=== PATIENT | female | born 1975 | race Caucasian/White ===

== ENCOUNTER 2019-06-23 11:02 | Emergency (ER) | payer OTHER, SELFPAY ==
[2019-06-23] VITALS (7 sets, daily range): BP systolic 139–173; BP diastolic 81–98; PULSE 68–90; RESP 16–20; TEMP 36.8; O2SAT 97–98
--- NOTE | ~2019-06-23 | US_ITS ---
EXAMINATION: US pelvic complete w TV DATE: 06/23/2019 12:31 INDICATION: Abnormal uterine bleeding with clots. Comparison:No prior studies for comparison. TECHNIQUE: Multiple transabdominal and endovaginal sonographic images of the pelvis performed. FINDINGS: The uterus measures 9.6 x 4.7 x 4.4 cm.. There are nabothian cysts. The endometrial complex measures 1.4 cm. The right ovary measures 3.5 x 3.2 x 2.7 cm. There is a 2.3 cm right ovarian cyst. There is a complex septated left adnexal cystic mass measuring 5.4 x 4.9 x 4.7 cm, likely ovarian. There is no free fluid in the pelvis. There are no abnormal masses seen on either side. IMPRESSION: 1. Complex 5.4 cm septated left adnexal cyst, likely ovarian. Although likely a complicated functiona l cyst, other etiologies such as cystadenoma/cystadenocarcinoma are not excluded. Recommend follow-up ultrasound in 4-6 weeks to assess for resolution. 2: 2.3 cm right ovarian cyst. 3: Endometrial thickening measuring 1.4 cm. Reviewed, dictated and finalized at location A. IMPRESSION: 1. Complex 5.4 cm septated left adnexal cyst, likely ovarian. Although likely a complicated functional cyst, other etiologies such as cystadenoma/cystadenocar cinoma are not excluded. Recommend follow-up ultrasound in 4-6 weeks to assess for resolution. 2: 2.3 cm right ovarian cyst. 3: Endometrial thickening measuring 1.4 cm.
[2019-06-23 11:35] LABS: Basophils Percent Auto 0.3 % (0.2-1.2); Eosinophils Absolute Auto 0.2 K/mm3 (0-0.3); Eosinophils Percent Auto 1.8 % (0-4.4); Hematocrit 36.4 % (37.0-47.0); Hemoglobin 11.9 g/dL (12.0-15.0); Immature Granulocyte Absolute 0.03 K/mm3 (0.00-0.031); Immature Granulocyte Percent A 0.3 % (0-0.5); Lymphocytes Absolute Auto 2.83 K/mm3 (0.9-3.2); Lymphocytes Percent Auto 26.1 % (18.3-44.2); Mean Corpuscular HGB Conc 32.7 g/dl (32-36); Mean Corpuscular Hemoglobin 26.3 pg (26-34); Mean Corpuscular Volume 80.5 fl (80-100); Mean Platelet Volume 10.8 fl (7.4-10.4); Monocytes Absolute Auto 0.6 K/mm3 (0.1-0.6); Monocytes Percent Auto 5.8 % (2.6-8.5); Neutrophils Absolute Auto 7.1 K/mm3 (1.3-6.7); Neutrophils Percent Auto 65.7 % (45.5-73.1); Platelet Count Result 300 k/mm3 (150-375); Red Blood Count 4.52 M/mm3 (4.2-5.4); Red Cell Distribution Width 15.4 % (11.5-14.5); White Blood Count 10.8 K/mm3 (4.5-10.0)
--- NOTE | 2019-06-23 11:39 | ED.FEMALEGU ---
HPI - Female Genitourinary General Chief complaint: Vaginal Bleeding Stated complaint: Vag bleeding Time Seen by Provider: 06/23/19 11:08 Source: patient Mode of arrival: ambulatory Limitations: no limitations History of Present Illness HPI Narrative: This is a 44 year old female that presents to the ER for AUB. Reports she started a period on the 13 of June. Reports since she has continued to bleed. Reports the last 2 days the bleeding has been heavy and she is soaking through a pad an hour. Also reports feeling generally weak. Denies fever, chest pain, shortness of breath, or lightheadedness. Related Data Home Medications Medication Instructions Recorded Confirmed ferrous sulfate 06/23/19 fluticasone propionate INTRANASAL 06/23/19 hydrochlorothiazide 06/23/19 levetiracetam PO 06/23/19 losartan 06/23/19 06/23/19 Allergies Allergy/AdvReac Type Severity Reaction Status Date / Time amoxicillin Allergy Mild Itching Verified 06/23/19 11:32 Review of Systems Review of Systems: Narrative: CONSTITUTIONAL: Denies fever CARDIOVASCULAR: Denies chest pain RESPIRATORY: Denies dyspnea. MUSCULOSKELETAL: Reports back pain All systems reviewed & are unremarkable except as noted in HPI and below PMFSH Past Medical History Medical History (Updated 06/23/19 @ 15:29 by Yessenia Del Rio PA-C) History of hypertension History of seizures Surgical History Surgical History (Updated 06/23/19 @ 11:42 by Yessenia Del Rio PA-C) History of cholecystectomy Family History Family History (Updated 05/25/17 @ 14:21 by DOCTOR UNKNOWN) Father Family history of gout Hypertension Family history of diabetes mellitus in first degree relative Sibling Hypertension Patient's sister is in good health Social History Social History Smoking status: Never smoker Alcohol intake: current Gender identity (if verbalized by the patient): Female Exam Narrative: Exam Narrative: GENERAL: Well-appearing, well-nourished, and in no acute distress. HEAD: Normocephalic, atraumatic. EYES: EOMI. CHEST: Clear to auscultation. No respiratory distress. No wheezes rales or rhonchi HEART: Regular rate and rhythm. No murmur heard. Normal peripheral pulses. ABDOMEN: Soft, nontender, nondistended, normal active bowel sounds. EXTREMITIES: Normal range of motion. No edema. SKIN: Warm, dry, no rash. NEURO: No focal deficits. Alert and oriented x3. PSYCH: Normal mood and affect PELVIC: Normal appearing cervix. Mild amount of dark red blood slowly oozing from the cervix Course Consultations Consultation #1: Spoke with Dr. Bullock about patient and work-up who would like patient started on Provera 10 mg daily and will follow-up in clinic Date: 06/23/19 Time: 15:27 Vital Signs Vital signs: Vital Signs Temperature 98.2 F 06/23/19 11:25 Pulse Rate 78 06/23/19 11:25 Respiratory Rate 18 06/23/19 11:25 Blood Pressure 151/91 H 06/23/19 11:25 Pulse Oximetry 97 06/23/19 11:25 Temperature 98.2 F 06/23/19 11:25 Pulse Rate 88 06/23/19 15:16 Respiratory Rate 16 06/23/19 15:16 Blood Pressure 147/92 H 06/23/19 15:16 Pulse Oximetry 97 06/23/19 15:16 MDM - Female Genitourinary MDM Narrative Medical decision making narrative: Patient presents to the emergency department for abnormal uterine bleeding. Patient's vitals are stable. She is not orthostatic. CBC with hemoglobin of 11.9. Metabolic panel without acute changes. UA with red blood cells, no evidence of infection. Pelvic ultrasound shows a complex left adnexal cyst that will need further follow-up. Also shows a smaller right ovarian cyst. Also shows endometrial thickening. Spoke with Dr. Bullock about patient and work-up who would like patient started on Provera 10 mg daily and will follow-up in clinic. Patient was given warnings to return to the ER Lab Data Attestation: I reviewed the patient's lab results. Result diagrams: 06/23/19 11:28
[2019-06-23 11:46] LABS: Alanine Aminotransferase 15 U/L (4-35); Albumin Level 4.2 g/dL (3.5-5.1); Alkaline Phosphatase 95 U/L (38-126); Aspartate Amino Transferase 21 U/L (14-36); Bilirubin,Total 0.3 mg/dL (0.2-1.3); Blood Urea Nitrogen 11 mg/dL (7-17); Calcium 8.8 mg/dL (8.4-10.2); Carbon Dioxide 28 mmol/L (22-30); Chloride 101 mmol/L (98-107); Estimated CRCL calculation 139 ml/min; Estimated Glomerular Filt Rate > 60; Glucose 86 mg/dL (65-105); Potassium 3.4 mmol/L (3.4-5.0); Sodium 135 mmol/L (137-145)
[2019-06-23 13:53] LABS: Add Urine Microscopic? YES; Appearance Urine Clear (Clear); Bilirubin Urine Negative (Negative); Blood Urine 3+ (Negative); Color Urine Straw (Yellow); Glucose Urine UA Negative (Negative); Ketones Urine Negative (Negative); Leukocyte Esterase Ur Negative LEU/UL (Negative); Mucus Urine Rare /lpf; Nitrate Urine Negative (Negative); Protein Urine Negative (Negative); RBC Urine >75 /hpf (0-2); Squamous Epithelial Cell Urine Occasional /hpf (Few); Urobilinogen Urine Negative mg/dL (<2.0); WBC Urine 0-3 /hpf
== END 2019-06-23 15:58 | disposition home or self-care (01) ==
PROVIDERS: Physician Assistant; Emergency Provider Emergency Medicine; PCP Physician Assistant
DX: N94.89 Other specified conditions associated with female genital organs and menstrual cycle (principal); N93.8 Other specified abnormal uterine and vaginal bleeding; I10 Essential (primary) hypertension; N83.201 Unspecified ovarian cyst, right side
CPT/HCPCS: 36415; 76830; 76856; 80053; 81001; 81025; 85025; 86850; 86900; 86901; 99284

== ENCOUNTER 2019-09-24 17:17 | Emergency (ER) | payer OTHER, SELFPAY ==
[2019-09-24] VITALS (7 sets, daily range): BP systolic 176–194; BP diastolic 106–110; PULSE 75–85; RESP 16–22; TEMP 36.2–37.3; O2SAT 96–97
--- NOTE | ~2019-09-24 | XR_ITS ---
EXAMINATION: XR chest 1V portable EXAM DATE: 09/24/2019 19:37 INDICATION: Productive cough. Sore throat. TECHNIQUE: Frontal and lateral projections of the chest obtained and reviewed. Comparison is made to prior examination from 12/25/2015. FINDINGS: There is small amount of ill-defined bibasilar airspace disease, could be atelectasis or i nfection. Cardiomediastinal silhouette is normal. There is no pneumothorax suspected. There are no pl eural effusions. IMPRESSION: 1. Small amount of bibasilar atelectasis or infection. Clinical correlation. Reviewed, dictated and finalized at location A.
--- NOTE | 2019-09-24 18:41 | ED.GENADULT ---
HPI - General Adult General Chief complaint: Headache <Emily Mitchell PA-C - Last Filed: 09/24/19 22:15> Stated complaint: headache/neck pain <Emily Mitchell PA-C - Last Filed: 09/24/19 22:15> Time Seen by Provider: 09/24/19 17:58 <ÁNGEL Sandoval Last Filed: 09/24/19 22:15> Source: patient <ÁNGEL Sandoval Last Filed: 09/24/19 22:15> Mode of arrival: ambulatory <ÁNGEL Sandoval Last Filed: 09/24/19 22:15> Limitations: no limitations <ÁNGEL Sandoval Last Filed: 09/24/19 22:15> History of Present Illness HPI narrative: 44-year-old female who is here for evaluation of her headache, she tells me that the headache comes on after she coughs. She has been seen and treated for sinusitis at another facility but states that she is not getting any better. She is on an antibiotic and a cough suppressant. She states that her cough is nonproductive of yellow-green sputum. She denies any chest pain, no focal weakness. Her blood pressure is elevated at this time and she does not know what her average blood pressure is at home and she reports taking only 1 medication for blood pressure. <Emily Mitchell PA-C - Last Filed: 09/24/19 22:15> Onset (ago): day(s) <ÁNGEL Sandoval Last Filed: 09/24/19 22:15> Location: head <ÁNGEL Sandoval Last Filed: 09/24/19 22:15> Pain Consistency: intermittent (occurring after coughing) <ÁNGEL Sandoval Last Filed: 09/24/19 22:15> Relieving factors: none <ÁNGEL Sandoval Last Filed: 09/24/19 22:15> Associated symptoms: cough <ÁNGEL Sandoval Last Filed: 09/24/19 22:15> Related Data Home medications: Home Medications Medication Instructions Recorded Confirmed ferrous sulfate 06/23/19 fluticasone propionate INTRANASAL 06/23/19 hydrochlorothiazide 06/23/19 levetiracetam PO 06/23/19 losartan 06/23/19 06/23/19 doxycycline hyclate 09/24/19 <Emily Mitchell PA-C - Last Filed: 09/24/19 22:15> Allergies/adverse reactions: Allergies Allergy/AdvReac Type Severity Reaction Status Date / Time amoxicillin Allergy Mild Itching Verified 09/24/19 18:47 <Emily Mitchell PA-C - Last Filed: 09/24/19 22:15> Review of Systems Review of Systems: All systems reviewed & are unremarkable except as noted in HPI and below <Emily Mitchell PA-C - Last Filed: 09/24/19 22:15> [facility] Past Medical History Medical History: Medical History History of hypertension History of seizures <Emily Mitchell PA-C - Last Filed: 09/24/19 22:15> Surgical History Surgical History: Surgical History History of cholecystectomy <Emily Mitchell PA-C - Last Filed: 09/24/19 22:15> Family History Family History: Family History Father Family history of gout Hypertension Family history of diabetes mellitus in first degree relative Sibling Hypertension Patient's sister is in good health <Emily Mitchell PA-C - Last Filed: 09/24/19 22:15> Social History Social History: Social History Smoking status: Never smoker Alcohol intake: current Gender identity (if verbalized by the patient): Female <Emily Mitchell PA-C - Last Filed: 09/24/19 22:15> Exam Const: General: no acute distress and alert <ÁNGEL Sandoval Last Filed: 09/24/19 22:15> Orientation/consciousness: patient oriented x3 <ÁNGEL Sandoval Last Filed: 09/24/19 22:15> HENMT: Ears: TM abnormal with fluid behind the TM bilateral <ÁNGEL Sandoval Last Filed: 09/24/19 22:15> General nose exam: Abnormal mucous membranes and turbinates present (swelling) other <ÁNGEL Sandoval Last Filed: 09/24/19 22:15> Face and s
[2019-09-24 19:02] LABS: Basophils Percent Auto 0.3 % (0.2-1.2); Eosinophils Absolute Auto 0.4 K/mm3 (0-0.3); Hematocrit 42.3 % (37.0-47.0); Hemoglobin 13.7 g/dL (12.0-15.0); Immature Granulocyte Absolute 0.04 K/mm3 (0.00-0.031); Immature Granulocyte Percent A 0.3 % (0-0.5); Lymphocytes Absolute Auto 2.36 K/mm3 (0.9-3.2); Lymphocytes Percent Auto 18.9 % (18.3-44.2); Mean Corpuscular HGB Conc 32.4 g/dl (32-36); Mean Corpuscular Hemoglobin 26.1 pg (26-34); Mean Corpuscular Volume 80.7 fl (80-100); Mean Platelet Volume 11.8 fl (7.4-10.4); Monocytes Absolute Auto 0.7 K/mm3 (0.1-0.6); Monocytes Percent Auto 5.6 % (2.6-8.5); Neutrophils Percent Auto 71.9 % (45.5-73.1); Platelet Count Result 318 k/mm3 (150-375); Red Blood Count 5.24 M/mm3 (4.2-5.4); Red Cell Distribution Width 15.3 % (11.5-14.5); White Blood Count 12.5 K/mm3 (4.5-10.0)
[2019-09-24 19:20] LABS: Alanine Aminotransferase 13 U/L (4-35); Albumin Level 4.1 g/dL (3.5-5.1); Alkaline Phosphatase 92 U/L (38-126); Anion Gap 9 mmol/L (8-16); Aspartate Amino Transferase 17 U/L (14-36); Bilirubin,Total 0.2 mg/dL (0.2-1.3); Blood Urea Nitrogen 17 mg/dL (7-17); Calcium 9.2 mg/dL (8.4-10.2); Carbon Dioxide 25 mmol/L (22-30); Chloride 104 mmol/L (98-107); Estimated Glomerular Filt Rate > 60; Glucose 104 mg/dL (65-105); Potassium 3.9 mmol/L (3.4-5.0); Sodium 138 mmol/L (137-145)
[2019-09-24] MEDS: IBUPROFEN 600 MG TABLET PO (20:19)
[2019-09-24] MEDS: AZITHROMYCIN 250 MG TABLET 500 MG PO (20:19)
== END 2019-09-24 22:00 | disposition home or self-care (01) ==
PROVIDERS: Physician Assistant; Emergency Provider Emergency Medicine; PCP Nurse Practitioner Family
DX: G44.209 Tension-type headache, unspecified, not intractable (principal); J18.9 Pneumonia, unspecified organism; I10 Essential (primary) hypertension
CPT/HCPCS: 36415; 71045; 80053; 81025; 85025; 94640; 99283; A9270

== ENCOUNTER 2024-06-10 23:51 | Observation (INO) | payer OTHER, SELFPAY ==
--- NOTE | ~2024-06-10 | XR_ITS ---
CHEST RADIOGRAPH CLINICAL HISTORY: chest pain LEFT SIDE . COMPARISON: 09/24/2019 TECHNIQUE: Single portable view of the chest. FINDINGS The aortic knob is enlarged more than one would expect for a patient of this age. The remainder of the cardiomediastinal silhouette is also enlarged, an interval change from prior per formed in 2019. Increased interstitial markings are identified bilaterally, findings suggesting mild pulmonary vascul ar congestion. The lungs are otherwise clear. IMPRESSION: Cardiomegaly (an interval change from prior) with mild pulmonary vascular congestion, without focal i nfiltrate. Reviewed, dictated and finalized at location A. IMPRESSION: Cardiomegaly (an interval change from prior) with mild pulmonary vascular conge stion, without focal infiltrate.
--- NOTE | ~2024-06-10 | CT_ITS ---
EXAMINATION: CT brain wo con DATE: 06/11/2024 11:19 INDICATION: Headache TECHNIQUE: Computed tomography (CT) of the head was performed without intravenous contrast. Sagittal and coronal reconstructions were performed. The mA was adjusted according to patient size. Iterative reconstruction technique was employed. The dose-length product was 605.33 mGy-cm. COMPARISON: Brain MR dated 06/18/2017 FINDINGS: No acute intracranial hemorrhage, acute infarction or abnormal extra axial fluid collection. There is mild to moderate scattered white matter hypoattenuation which is disproportionate for age. Ventricl es are normal and symmetric. No mass/mass effect. End seen is a Chiari I malformation with the cerebe llar tonsils extending well below the level of the foramen magnum. The orbits, paranasal sinuses and mastoid air cells are normal. IMPRESSION: 1. Mild to moderate nonspecific white matter hypodensity which is disproportionate for age. This coul d be related to premature chronic small vessel ischemic disease given the reported history of hyperte nsion. Differential would also include demyelinating disease such as multiple sclerosis or acute diss eminated encephalomyelitis (ADEM), CADASIL (especially if age 20-40 with prominent anterior temporal lobe or external capsule involvement), drug abuse (especially with cerebellar involvement), vasculiti s, or reactive astrocytosis (gliosis) secondary to nonspecific etiology. 2. Chiari I malformation. Reviewed, dictated and finalized at location A. IMPRESSION: 1. Mild to moderate nonspecific white matter hypodensity which is disproportion ate for age. This could be related to premature chronic small vessel ischemic d isease given the reported history of hypertension. Differential would also incl ude demyelinating disease such as multiple sclerosis or acute disseminated ence phalomyelitis (ADEM), CADASIL (especially if age 20-40 with prominent anterior temporal lobe or external capsule involvement), drug abuse (especially with cer ebellar involvement), vasculitis, or reactive astrocytosis (gliosis) secondary to nonspecific etiology. 2. Chiari I malformation.
--- NOTE | ~2024-06-10 | CT_ITS ---
EXAMINATION: CTA chest abdomen pelvis DATE: 06/11/2024 02:03 INDICATION: Chest pain radiating to the left back TECHNIQUE: Computed tomographic angiography (CTA) of the chest, abdomen and pelvis was performed with 100 mL Omnipaque-350 intravenous contrast. Additional 3D reconstructions utilizing rotating maximum intensity projection (MIP) were performed. Automated exposure control and iterative reconstruction te chnique were employed. The dose-length product was 1853.37 mGy-cm. COMPARISON: CT abdomen pelvis dated 07/11/2012 FINDINGS: Chest: There is mosaic attenuation throughout both lungs. Discoid atelectasis in the lingula and left lower lobe. No pleural effusion. Cardiomegaly. No pericardial effusion. Thoracic aorta is normal in caliber with no dissection. Enlargement of the central pulmonary arteries consistent with pulmonary arterial hypertension. No pulmonary embolism. No pathologically enlarged thoracic lymphadenopathy. Likely dev elopmental anterior posterior fusion at T2-T3 and at T4-T5. Hypoplastic bilateral first ribs. Abdomen and pelvis: Cholecystectomy clips the gallbladder fossa. Liver, spleen, pancreas, bilateral adrenal glands and ki dneys are normal. Bowels including the appendix are normal. Bladder, uterus and bilateral adnexa are unremarkable. No free intraperitoneal gas or fluid. No pathologically enlarged abdominal or pelvic ly mphadenopathy. There is calcified atherosclerosis without hemodynamically significant stenosis of the normal caliber abdominal aorta and many of the other arteries. Mild lumbar spondylosis. IMPRESSION: 1. Mosaic attenuation in the lungs most likely related to subsegmental air trapping related to small airway disease and/or pulmonary hypertension with enlargement of the central pulmonary arteries. 2. Cardiomegaly. 3. No acute intra-abdominal/pelvic process. Reviewed, dictated and finalized at location A. IMPRESSION: 1. Mosaic attenuation in the lungs most likely related to subsegmental air trap ping related to small airway disease and/or pulmonary hypertension with enlarge ment of the central pulmonary arteries. 2. Cardiomegaly. 3. No acute intra-abdominal/pelvic process.
[2024-06-10 23:52] VITALS: BP 230/117; PULSE 85; RESP 22; TEMP 35.6; O2SAT 98
--- OUTSIDE RECORDS SUMMARY | 2024-06-10 23:53 | XMS_ITS | Referral Summary ---
Author Organization [facility] Address [address] [place] [address] Care Team Providers Care Crop Nutrition Scientist Name Role Phone Flavia Gibson NP Primary Care Provider Encounters Date Type Department Care Team Description 03/21/2024 10:00 AM GREASE MAN Office Visit [facility] Orthopedic [facility] Sports Medicine [address] [place] [id number] Kan Vasquez PA Primary osteoarthritis of both knees (Primary Dx) from Last 3 Months Allergies Active Allergy Reactions Criticality Noted Date Comments Amlodipine Swelling High 01/16/2021 Amoxicillin Unknown 07/09/2020 Amoxicillin-Pot Clavulanate Rash Medium 05/11/19 16 Medications losartan (COZAAR) 50 mg tablet losartan potassium 50 mg tabs Active tiZANidine (ZANAFLEX) 4 mg tablet tizanidine 4 mg tablet 8 Active albuterol HFA (PROVENTIL HFA,VENTOLIN HFA,PROAIR HFA) 90 mcg/actuation inhaler Take by mouth 1 Active fluticasone propionate (FLONASE) 50 mcg/actuation nasal spray Apply topically 1 Active hydroCHLOROthia zide (HYDRODIURIL) 25 mg tablet Take by mouth 0 Active phentermine 37.5 mg capsule 0 1 Active terbinafine (LamISIL) 1 % cream terbinafine HCl 1 % topical cream Active ibuprofen (ADVIL,MOTRIN) 800 mg tablet TAKE 1 TABLET(800 MG) BY MOUTH TWICE DAILY WITH FOOD 60 tablet 2 2 Active cefdinir (OMNICEF) 300 mg capsule TAKE 1 CAPSULE BY MOUTH EVERY 12 HOURS FOR 7 DAYS 2 Active ergocalciferol (VITAMIN D) 50,000 unit capsule Take 1 capsule (50,000 Units total) by mouth once a week 1 Active levETIRAcetam (KEPPRA) 500 mg tablet TAKE 2 TABLETS BY MOUTH TWICE DAILY FOR 15 DAYS 2 Active losartan-hydroc hlorothiazide (HYZAAR) 100-25 mg per tablet Take 1 tablet by mouth daily 2 Active naproxen (NAPROSYN) 500 mg tablet Take 500 mg by mouth 1 Active pyridoxine (VITAMIN B-6) 100 mg tablet Take 1 tablet (100 mg total) by mouth daily 3 Active ofloxacin (FLOXIN) 0.3 % otic solution INSTILL 10 DROPS TO AFFECTED EAR EVERY DAY FOR 7 DAYS 3 Active metoprolol XL (TOPROL-XL) 50 mg extended release tablet Take 1 tablet (50 mg total) by mouth daily 4 Active methylPREDNISol one (MEDROL DOSEPACK) 4 mg Dosepack FOLLOW PACKAGE DIRECTIONS 3 Active metFORMIN (GLUCOPHAGE) 500 mg tablet Take 1 tablet (500 mg total) by mouth 2 (two) times a day 3 Active levoFLOXacin (LEVAQUIN) 750 mg tablet Take 1 tablet (750 mg total) by mouth daily 3 Active cyclobenzaprine (FLEXERIL) 10 mg tablet TAKE 1 TABLET BY MOUTH EVERY 8 TO 10 HOURS - DO NOT DRIVE OR OPERATE MACHINERY WHILE TAKING THIS MEDICATION 3 Active Active Problems No known active problems Social History Tobacco Use Types Packs/Day Years Used Date Smoking Tobacco: Never Smokeless Tobacco: Never Alcohol Use Standard Drinks/Week Comments Yes 0 (1 standard drink = 0.6 oz pur e alcohol) AUDIT-C Answer Date Recorded Q1: How often do you have a drink containing alcohol? Never 03/21/2024 Q2: How many drinks containi ng alcohol do you have on a typical day when you are drinking? Patient does not drink 5 Q3: How often do you have si x or more drinks on one occasion? Never 03/21/2024 Comments Unknown Sex and Gender Information Value Date Recorded Sex Assigned at Not on file Legal Sex Female 1:34 PM CDT Gender Identity Not on file Sexual Orientation Not on file Last Filed Vital Signs Vital Sign Reading Time Taken Comments Blood Pressure 140/76 03/21/2024 10:16 AM GREASE MAN Pulse 76 03/21/2024 10:16 AM GREASE MAN Temperature 36.4 C (97.6 F) 01/10/2020 9:39 AM GREASE MAN Respiratory Rate - - Oxygen Saturation - - Inhaled Oxygen Concentration - - Weight 110.7 kg (244 lb) 03/21/2024 10:16 AM GREASE MAN Height 144.8 cm (4' 9 ) 03/21/2024 10:16 AM GREASE MAN Body Mass Index 52.8 03/21/2024 10:16 AM GREASE MAN Plan of Treatment Not on file Procedures Procedure Name Priority Date/Time Associated Diagnosis Comments MI ARTHROCENTESIS ASPIR&/INJ MAJOR JT/BURSA W/O US Routine 03/21/2024 10:00 AM GREASE MAN Primary osteoarthritis of both knees from Last 3 Months Results * MI ARTHROCENTESIS ASPIR&/INJ MAJOR JT/BURSA W/O US (03/21/2024 10:00 AM GREASE MAN) Narrative Kan Vasquez PA - 03/21/2024 10:00 AM GREASE MAN Kan Vasquez PA 03/21/2024 10:33 AM Large Joint (Hip, Knee, Shoulder) Injection: L knee Performed by: Kan Vasquez PA Authorized by: Kan Vasquez PA Large Joint Injection/Aspiration: Consent Given by: Patient Timeout: prior to procedure the correct patient, procedure, and site was verified Verbal consent obtained: Yes Supporting Documentation: Indications: Pain Procedure Details: Location: Knee Site: L knee Prep: patient was prepped using a clean technique Needle Size: 22 G Approach: Anteromedial Ultrasound guided: No Fluroscopic guidance: No Medications: 80 mg methylPREDNISolone acetate 80 mg/mL; 3 mL lidocaine 20 mg/mL (2 %) Patient tolerance: Patient tolerated the procedure well with no immediate complications us Kan BLANCHARD IN CLINIC/BEDSIDE ORDERABLE S Final Result from Last 3 Months Insurance [facility] Member Subscriber Plan / Payer (Ef fective 2015-Present) Name:Savannah Mills Relation to Subscriber:Self Name:Savannah Mills Payer ID:[id number] (NAIC) Group ID:Not on file Type:MEDICAID RISK OTHER Address: [address] [place], [place] [id number] [place] [address] [facility] Care Teams Crop Nutrition Scientist Relationship Specialty Start Date End Date Paige, Flavia Cordero NP [address] [place] [address] [place] [id number] PCP - General Nurse Practitioner 09/16/19
--- OUTSIDE RECORDS SUMMARY | 2024-06-10 23:54 | XMS_ITS | Data Portability ---
Author [facility] [address] [place] [address] Care Team Providers Care Tombstone Setter Name Role Phone FLAVIA MYERS Primary Care Provider Assessment No assessment recorded. Plan of Treatment Reminders Order Date Submit Date Provider Last Modified By Organization Details Last Modified Time Details Appointments ANY 15 2024 01:45P M LISA DeviN, ADMITTING CLERK-C Not available Not available Not available Lab HbA1c (hemoglo bin A1c), blood 2023 024 [facility], [address] [place] [address], [place], [address], 11/04/2023 07:13:46 CMP, serum or plasma 2023 024 [facility], [address] [place] [address], [place], [address], 11/04/2023 03:09:08 CBC w/ auto diff 2023 024 [facility], [address] [place] [address] 2, [place], [address], 11/04/2023 03:09:09 lipid panel, serum 2023 024 [facility], [address] [place] [address] 2, [place], [address], 11/04/2023 03:09:07 vitamin D, 25-hydro xy, total, serum 2023 024 [facility], [address] [place] [address], [facility], [place], [address], 11/04/2023 07:13:47 noninvas marcelo colorect al cancer DNA + occult blood screenin g, QL, stool 2023 024 [place] [facility] (Cologuard Orders Only), [address], [address], [place], [address], 08/31/2023 15:02:15 TSH, ultra-se nsitive, serum 2023 024 [place] [facility], [address] [facility], [facility], [place], [address], 11/04/2023 07:13:45 rapid SARS CoV 2 Ag, QL IA, respirat ory specimen 2022 023 In-Office Order, Internal Use Only DO Not Attach Compendium DO Not Attach Compendium, Do Not Delete/merge, [id number] 01/28/2023 22:07:19 rapid flu (A+B) 2022 023 In-Office Order, Internal Use Only DO Not Attach Compendium DO Not Attach Compendium, Do Not Delete/merge, [id number] 01/28/2023 22:07:[address] referral 2023 024 [place] [facility], [address] [facility], [facility] [address], [place], [address], 05/09/2024 07:47:30 physical therapis t referral [address] [facility], [address] [place], [address], 04/28/2023 16:40:00 Procedures None recorded . Surgeries None recorded . Imaging MAMMO, screenin g, digital, bilatera l 2023 024 [facility] ([facility]), [address] [place], [address], 12/23/2023 11:19:23 XR, spine, scoliosi s series 2023 [facility] [address] [place], [address], 05/07/2023 14:07:44 Medication Orders hydrochl orothiaz richard 25 mg tablet 2023 024 [facility]26031, [address], [place], [place], [id number], 01/26/2024 15:25:00 ergocalc iferol (vitamin D2) 50 mcg (2,000 unit) capsule 2023 [facility] #37582, [address], [place], [place], [id number], 01/26/2024 15:24:59 metformi n 500 mg tablet 2023 024 [facility] #42950, [address], [place], [place], [id number], 01/26/2024 15:25:02 ibuprofe n 800 mg tablet [email or web address] [place] [address] [facility] #83190, [address], [place], [place], [id number], 01/26/2024 15:25:04 metformi n 500 mg tablet 2023 024 [facility] #16089, [address], [place], [place], [id number], 08/31/2023 15:02:05 hydrochl orothiaz richard 25 mg tablet 2023 024 [facility] #38228, [address], [place], [place], [id number], 08/31/2023 15:02:04 ergocalc iferol (vitamin D2) 50 mcg (2,000 unit) capsule [address] [facility] #94717, [address], [place], [place], [id number], 08/31/2023 15:30:27 losartan 100 mg tablet 2023 024 [facility] #30553, [address], [id number], 08/31/2023 15:02:13 metoprol ol succinat e ER 50 mg tablet,e xtended release 24 hr 2023 024 [facility] #75537, [address], [place], [id number], 08/31/2023 15:06:29 ibuprofe n 800 mg tablet 2023 024 [facility] #65396, [address], [place], [place], [id number], 08/31/2023 15:02:06 ergocalc iferol (vitamin D2) 50 mcg (2,000 unit) capsule 2023 024 [facility] #09581, [address], [place], [id number], 04/06/2023 16:34:10 ibuprofe n 800 mg tablet 2022 023 [facility] #90801, [address], [place], [id number], 01/28/2023 16:43:19 ofloxaci n 0.3 % ear drops 2022 023 [facility] #27511, [address], [place], [place], [id number], 04/06/2023 16:02:27 cefdinir 300 mg capsule 2022 023 [email or web address] [facility] #02147, [address], [place], [place], [id number], 02/24/2023 15:55:34 Patient TargetsNo targets recorded. Patient Instructions Encounter Date Encounter Id Patient Instructions Last Modified By Organization Details Last Modified Time 01/28/2023 [id number] learning about h igh blood pressure Not available 01/28/2023 16:43:07 Take all antibiotics prescribed to you. If any fever or increase in pain, call/return to office. Not available 01/28/2023 22:07:30 keep f/u as plan odell refer to ENT Not available 01/28/2023 22:07:50 04/06/2023 [id number] When You Want to Lose Weight: Care Instructions Not available 04/06/2023 16:34:05 musculoskeletal pain: care instructions Not available 04/06/2023 16:34:05 arthritis: care instructions Not available 04/06/2023 16:34:05 learning about h igh blood pressure Not available 04/06/2023 16:34:05 learning about m ood disorders Not available 04/06/2023 16:34:06 Cont on current medications. Not available 04/06/2023 16:32:33 f/u 4 months DWP barriers to care: none Not available 04/06/2023 16:33:04 08/31/2023 [id number] mammogram: about this test Not available 08/31/2023 15:01:58 When You Want to Lose Weight: Care Instructions Not available 08/31/2023 15:01:57 learning about h igh blood pressure Not available 08/31/2023 15:01:57 musculoskeletal pain: care instructions Not available 08/31/2023 15:01:57 arthritis: care instructions Not available 08/31/2023 15:01:57 learning about m ood disorders Not available 08/31/2023 15:01:58 Cont on current medications. Not available 08/31/2023 14:55:02 f/u 4 months DWP barriers to care: none Not available 08/31/2023 14:55:03 01/26/2024 [id number] When You Want to Lose Weight: Care Instructions Not available 01/26/2024 15:24:47 learning about h igh blood pressure Not available 01/26/2024 15:24:48 musculoskeletal pain: care instructions Not available 01/26/2024 15:24:48 arthritis: care instructions Not available 01/26/2024 15:24:48 learning about m ood disorders Not available 01/26/2024 15:24:48 Cont on current medications. Not available 01/26/2024 15:07:25 f/u 4 months DWP barriers to care: none Not available 01/26/2024 15:07:23 Reason for Referral Physical Therapist Referral for Scoliosis deformity of spine Referring Physician: Flavia Myers [facility], Encounter Date: 04/06/2023 Control Cabinet Assembler Referral for Tear of talofibular ligament Referring Physician: Flavia Myers [facility] Dominique, Encounter Date: 01/26/2024 Results Created Date Observation Date Name Description Value Unit Range Abnormal Flag Note LastModifiedBy Organization Detail LastModifiedTime 01/29/20 23 01/28/2023 rapid flu (A+B) Flu A negati ve Not Available In-Office Order Internal Use Only DO Not Attach Compendium DO Not Attach Compendium, Do Not Delete/merge, [id number] 01/28/2023 16:43:22 01/29/20 23 01/28/2023 rapid flu (A+B) Flu B negati ve Not Available In-Office Order Internal Use Only DO Not Attach Compendium DO Not Attach Compendium, Do Not Delete/merge, [id number] 01/28/2023 16:43:22 01/29/20 23 01/28/2023 rapid SARS CoV 2 Ag, QL IA, respi rator y speci men rapid SARS CoV 2 Ag, QL IA, respiratory specimen negati ve Not Available In-Office Order Internal Use Only DO Not Attach Compendium DO Not Attach Compendium, Do Not Delete/merge, [id number] 01/28/2023 16:43:20 11/03/19 24 11/03/2023 LIPID PANEL cholesterol, total 221 mg/dL 100-19 9 above high normal Not Available [facility] Department [address] [place] [address], [address], 11/04/2023 03:09:07 11/03/19 24 11/03/2023 LIPID PANEL triglyceride s 76 mg/dL 0-149 Not Available [facility] Department [address] [place], [address], 11/04/2023 03:09:07 11/03/19 24 11/03/2023 LIPID PANEL HDL cholesterol 71 mg/dL 40-999 Not Available [facility] Department [address] [place], [address], 11/04/2023 03:09:07 11/03/19 24 11/03/2023 LIPID PANEL VLDL cholesterol leo 15 mg/dL 5-40 Not Available [facility] Department [address] [place], [address], 11/04/2023 03:09:07 11/03/19 24 11/03/2023 LIPID PANEL LDL chol calc (nih) 146 mg/dL 0-99 above high normal Not Available [facility] Department [address] [place], [address], 11/04/2023 03:09:07 11/03/19 24 11/03/2023 COMP. METAB OLIC PANEL (14) glucose 90 mg/dL 70-99 Not Available [facility] Department [address] [place] [address], [address], 11/04/2023 03:09:08 11/03/19 24 11/03/2023 COMP. METAB OLIC PANEL (14) BUN 11 mg/dL 6-24 Not Available [facility] Department [address] [place] [address], [address], 11/04/2023 03:09:08 11/03/19 24 11/03/2023 COMP. METAB OLIC PANEL (14) creatinine <=0.46 mg/dL 0.76-1 .27 below low normal Not Available [facility] Department [address] [place] [address], [address], 11/04/2023 03:09:08 11/03/19 24 11/03/2023 COMP. METAB OLIC PANEL (14) eGFR 119 >=60 Units for eGFR value s are mL/mi n/1.7 3 The eGFR Calcu latio n has not been valid ated for patie nts under the age of 18. If test resul ts are displ ayed for a patie nt under the age of 18, disre roby that value . Not Available [facility] Department [address] [place] [address], [address], 11/04/2023 03:09:08 11/03/19 24 11/03/2023 COMP. METAB OLIC PANEL (14) BUN/creatini ne ratio 25 9-23 above high normal Not Available [facility] Department [address] [place] [address], [address], 11/04/2023 03:09:08 11/03/19 24 11/03/2023 COMP. METAB OLIC PANEL (14) sodium 137 mmol/ L 134-14 4 Not Available [facility] Department [address] [place] [address], [address], 11/04/2023 03:09:08 11/03/19 24 11/03/2023 COMP. METAB OLIC PANEL (14) potassium 3.9 mmol/ L 3.5-5. 2 Not Available [facility] Department [address] [place], [address], 11/04/2023 03:09:08 11/03/19 24 11/03/2023 COMP. METAB OLIC PANEL (14) chloride 97 mmol/ L 96-106 Not Available [facility] Department [address] [place], [address], 11/04/2023 03:09:08 11/03/19 24 11/03/2023 COMP. METAB OLIC PANEL (14) carbon dioxide, total 29 mmol/ L 20-29 Not Available [facility] Department [address] [place], [address], 11/04/2023 03:09:08 11/03/19 24 11/03/2023 COMP. METAB OLIC PANEL (14) calcium 9.6 mg/dL 8.7-10 .2 Not Available [facility] Department [address] [place], [address], 11/04/2023 03:09:08 11/03/19 24 11/03/2023 COMP. METAB OLIC PANEL (14) protein, total 7.7 g/dL 6.0-8. 5 Not Available [facility] Department [address] [place], [address], 11/04/2023 03:09:08 11/03/19 24 11/03/2023 COMP. METAB OLIC PANEL (14) albumin 4.3 g/dL 3.9-4. 9 Not Available [facility] Department [address] [place], [address], 11/04/2023 03:09:08 11/03/19 24 11/03/2023 COMP. METAB OLIC PANEL (14) globulin, total 3.4 g/dL 1.5-4. 5 Not Available [facility] Department [address] [place], [address], 11/04/2023 03:09:08 09/17/20 24 11/03/2023 COMP. METAB OLIC PANEL (14) A/G ratio 1.0 1.2-2. 2 below low normal Not Available [facility] Department [address] [place], [address], 11/04/2023 03:09:08 11/03/19 24 11/03/2023 COMP. METAB OLIC PANEL (14) bilirubin, total 0.6 mg/dL 0.0-1. 2 Not Available [facility] Department [address] [place] [address], [address], 11/04/2023 03:09:08 11/03/19 24 11/03/2023 COMP. METAB OLIC PANEL (14) alkaline phosphatase 135 IU/L 44-121 above high normal Not Available [facility] Department [address] [place] [address], [address], 11/04/2023 03:09:08 11/03/19 24 11/03/2023 COMP. METAB OLIC PANEL (14) AST (SGOT) 16 IU/L 0-40 Not Available [facility] Department [address] [place] [address], [address], 11/04/2023 03:09:08 11/03/19 24 11/03/2023 COMP. METAB OLIC PANEL (14) ALT (SGPT) 13 IU/L 0-32 Not Available [facility] Department [address] [place] [address], [address], 11/04/2023 03:09:08 11/03/19 24 11/03/2023 CBC WITH DIFFE RENTI AL/PL ATELE T WBC 10.8 x10e3 /uL 3.4-10 .8 Not Available [facility] Department [address] [place] [address], [address], 11/04/2023 03:09:09 11/03/19 24 11/03/2023 CBC WITH DIFFE RENTI AL/PL ATELE T RBC 5.51 x10e6 /uL 3.77-5 .28 above high normal Not Available [facility] Department [address] [place], [address], 11/04/2023 03:09:09 11/03/19 24 11/03/2023 CBC WITH DIFFE RENTI AL/PL ATELE T hemoglobin 14.0 g/dL 11.1-1 5.9 Not Available [facility] Department [address] [place], [address], 11/04/2023 03:09:09 11/03/19 24 11/03/2023 CBC WITH DIFFE RENTI AL/PL ATELE T hematocrit 46.1 % 34.0-4 6.6 Not Available [facility] Department [address] [place], [address], 11/04/2023 03:09:09 11/03/19 24 11/03/2023 CBC WITH DIFFE RENTI AL/PL ATELE T MCV 84 fL 79-97 Not Available [facility] Department [address] [place], [address], 11/04/2023 03:09:09 11/03/19 24 11/03/2023 CBC WITH DIFFE RENTI AL/PL ATELE T MCH 25.4 pg 26.6-3 3.0 below low normal Not Available [facility] Department [address] [place], [address], 11/04/2023 03:09:09 11/03/19 24 11/03/2023 CBC WITH DIFFE RENTI AL/PL ATELE T MCHC 30.4 g/dL 31.5-3 5.7 below low normal Not Available [facility] Department [address] [place], [address], 11/04/2023 03:09:09 11/03/19 24 11/03/2023 CBC WITH DIFFE RENTI AL/PL ATELE T RDW 15.6 % 11.5-1 4.5 above high normal Not Available [facility] Department [address] [place], [address], 11/04/2023 03:09:09 11/03/19 24 11/03/2023 CBC WITH DIFFE RENTI AL/PL ATELE T platelets 345 x10e3 /uL 150-45 0 Not Available [facility] Department [address] [place], [address], 11/04/2023 03:09:09 11/03/19 24 11/03/2023 CBC WITH DIFFE RENTI AL/PL ATELE T neutrophils 74 % notest b. Not Available [facility] Department [address] [place], [address], 11/04/2023 03:09:09 11/03/19 24 11/03/2023 CBC WITH DIFFE RENTI AL/PL ATELE T lymphs 17 % notest b. Not Available [facility] Department [address] [place], [address], 11/04/2023 03:09:09 11/03/19 24 11/03/2023 CBC WITH DIFFE RENTI AL/PL ATELE T monocytes 6 % notest b. Not Available [facility] Department [address] [place], [address], 11/04/2023 03:09:09 11/03/19 24 11/03/2023 CBC WITH DIFFE RENTI AL/PL ATELE T eos 2 % notest b. Not Available [facility] Department [address] [place], [address], 11/04/2023 03:09:09 11/03/19 24 11/03/2023 CBC WITH DIFFE RENTI AL/PL ATELE T basos 0 % notest b. Not Available [facility] Department [address] [place], [address], 11/04/2023 03:09:09 11/03/19 24 11/03/2023 CBC WITH DIFFE RENTI AL/PL ATELE T neutrophils (absolute) 8.0 x10e3 /uL 1.4-7. 0 above high normal Not Available [facility] Department [address] [place], [address], 11/04/2023 03:09:09 11/03/19 24 11/03/2023 CBC WITH DIFFE RENTI AL/PL ATELE T lymphs (absolute) 1.9 x10e3 /uL 0.7-3. 1 Not Available [facility] Department [address] [place], [address], 11/04/2023 03:09:09 11/03/19 24 11/03/2023 CBC WITH DIFFE RENTI AL/PL ATELE T monocytes(ab solute) 0.6 x10e3 /uL 0.1-0. 9 Not Available [facility] Department [address] [place] [address], [address], 11/04/2023 03:09:09 11/03/19 24 11/03/2023 CBC WITH DIFFE RENTI AL/PL ATELE T eos (absolute) 0.2 x10e3 /uL 0.0-0. 4 Not Available [facility] Department [address] [place], [address], 11/04/2023 03:09:09 11/03/19 24 11/03/2023 CBC WITH DIFFE RENTI AL/PL ATELE T baso (absolute) 0.0 x10e3 /uL 0.0-0. 2 Not Available [facility] Department [address] [place], [address], 11/04/2023 03:09:09 11/03/19 24 11/03/2023 CBC WITH DIFFE RENTI AL/PL ATELE T immature granulocytes 0.4 % notest b. Not Available [facility] Department [address] [place] [address], [address], 11/04/2023 03:09:09 09/17/11/03/2023 CBC WITH DIFFE RENTI AL/PL ATELE T immature grans (abs) 0.0 x10e3 /uL 0.0-0. 1 Not Available [facility] Department [address] [place], [address], 11/04/2023 03:09:09 11/03/19 24 11/03/2023 CBC WITH DIFFE RENTI AL/PL ATELE T NRBC 0 % 0-0 Not Available [facility] Department [address] [place], [address], 11/04/2023 03:09:09 11/03/1911/04/2023 TSH RFX ON ABNOR MAL TO FREE T4 TSH 0.505 uIU/m L 0.450- 4.500 Not Available [facility] ([facility]) [address] [place], [address], 11/04/2023 07:13:45 11/03/1911/03/2023 HEMOG LOBIN A1C hemoglobin A1C 5.9 % 4.8-5. 6 above high normal Predi abete s: 5.7 - 6.4 Diabe vinita: >6.4 Glyce vance contr ol for adult s with diabe vinita: <7.0 Not Available [facility] ([facility]) [address] [place], [address], 11/04/2023 07:13:46 11/03/1911/04/2023 VITAM IN D, 25-HY DROXY vitamin D, 25-hydroxy 14.6 NG/mL 30.0-1 00.0 below low normal Vitam in D defic iency has been defin ed by the Insti tute of Medic ine and an Endoc rine Socie ty pract ice guide line as a level of serum 25-OH vitam in D less than 20 ng/mL (1,2) . The Endoc rine Socie ty went on to furth er defin e vitam in D insuf ficie ncy as a level betwe en 21 and 29 ng/mL (2). 1. IOM (Inst itute of Medic ine). 2010. Dieta ry refer ence intak es for calci um and D. Memo ornel[place]: [facility] . 2. Saeid alamo [place], [place], Master off-F errar i DUNBAR, et al. Evalu ation , treat ment, and preve ntion of vitam in D defic iency : an Endoc rine Socie ty clini leo pract ice guide line. JCEM. 2010; 96(7) :1911 -30. Not Available [facility] ([facility]) [address], [place], [address], 11/04/2023 07:13:47 01/29/20 23 12/30/2022 MRI, cervi leo spine , w/o contr ast No observ ation record ed. [email or web address] Not Available 01/16 13:09:58 01/29/20 23 01/19/2020 MRI, cervi leo spine , w/o contr ast No observ ation record ed. BARCODE Not Available 2022 13:08:21 05/07/19 24 05/07/2023 XR, knee, 3 view No observ ation record ed. [facility] [address] [place], [address], 05/12/2023 08:30:53 05/07/19 24 05/07/2023 XR, spine , scoli osis serie s No observ ation record ed. [address] [place], [address], 05/26/2023 14:07:36 05/07/19 24 05/07/2023 XR, spine , scoli osis serie s No observ ation record ed. [address] [place], [address], 05/26/2023 14:08:00 05/07/19 24 05/07/2023 XR, spine , scoli osis serie s No observ ation record ed. [facility] [address] [place], [address], 05/26/2023 14:08:07 05/07/19 24 05/07/2023 CT, cervi leo spine , w/o contr ast No observ ation record ed. [facility] [address] [place], [address], 05/12/2023 08:31:19 12/23/19 24 12/23/2023 MAMMO , scree shawna, digit al, bilat eral No observ ation record ed. [facility] [address] [place], [address], 12/29/2023 08:04:44 02/17/19 25 02/02/2024 home sleep study No observ ation record ed. [facility] [address], [place], [address], 02/22/2024 14:02:34 Result Notes None recorded. 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 - SI 3 15:11:24 Seizure 74520389 Active 2017 Flavia Myers APN ADMITTING CLERK-C Attn: David licona,[address] [facility], [place], [address], [facility] - SIF 3 15:11:25 Snoring 29169090 Active 2017 Flavia Myers APN ADMITTING CLERK-C Attn: David licona,[address] [facility], [place], [address], [facility] - [facility] 3 15:11:24 Vitamin D deficienc y 75412425 Active 2017 Flavia Myers APN ADMITTING CLERK-C Attn: David licona,[address] [place], [place], [address] [place] [address] [address], [facility] - SI 3 15:11:24 Iron deficienc y 87293598 Active 2017 Flavia Myers APN ADMITTING CLERK-C Attn: David licona,[address] [place], [place], [address] [place] [address] 2, [facility] - SI 3 15:11:24 Chiari malformat ion type I 476237799 Active 2017 Flavia Myers APN ADMITTING CLERK-C Attn: David licona,[address] [place], [place], [address] [place] [address] 2, [facility] - SI 3 15:11:24 Allergic rhinitis 13472880 Active 2017 Flavia Myers APN ADMITTING CLERK-C Attn: Charlesangy licona,[address] [place], [place], [address] [place] [address] 2, [facility] - [facility] 3 15:11:24 Headache 19780453 Active 2017 Flavia Myers APN ADMITTING CLERK-C Attn: Charlesangy licona,[address] [place], [place], [address] [place] [address] [address], [facility] - SI 3 15:11:24 Disorder of joint of right ankle 006073751530 [address]372 Active 2017 atfl tear Flavia Myers APN, FNP-C Attn: Charlesangy licona,[address] [place], [place], [address] [place] [address] [address], [facility] - [facility] 3 15:11:24 Tear of medial meniscus of knee 634959087 Active 2017 Flavia Myers APN ADMITTING CLERK-C Attn: David monae,[address] [place], [address], [facility] - [facility] 3 15:11:24 Depressiv e disorder 61525582 Active 2019 Flavia Myers APN ADMITTING CLERK-C Attn: David monae,[address] [facility], [place], [address], [facility] - [facility] 3 15:11:24 Dysfuncti on of eustachia n tube 54837378 Active 2019 Flavia Myers APN, ADMITTING CLERK-C Attn: David monae,[address] [facility], [place], [address], [facility] - [facility] 3 15:11:24 Scoliosis deformity of spine 032617742 Active 2019 Flavia Myers APN, ADMITTING CLERK-C Attn: David licona,[address] [facility], [place], [place], [address] [place] [address] 2, [facility] - [facility] 3 15:11:24 Pain of right ankle joint 660250044641 00364 Active 2019 Flavia Myers APN, ADMITTING CLERK-C Attn: David licona,[address] [facility], [place], [place], [address] [place] [address] [address], [facility] - [facility] 3 15:11:24 COVID-19 892861250 Active 2020 Flavia Myers APN, ADMITTING CLERK-C Attn: David licona,[address] [facility], [place], [place], [address] [place] [address] 2, [facility] - [facility] 3 15:11:25 Postviral cough [id number] Active 2020 Flavia Myers APN, ADMITTING CLERK-C Attn: David licona,20[address] [facility], [place], [place], [address] [place] [address] 2, [place] - [facility] 3 15:11:24 Morbid obesity 001214596 Active 2020 Flavia Myers APN, ADMITTING CLERK-C Attn: David licona,2040 [facility], [place], [place], [address] [place] [address] 2, [place] - [facility] 3 15:11:24 Pain in left knee Active 2020 Flavia Myers APN, ADMITTING CLERK-C Attn: David licona,[address] [facility], [place], [address], [place] [facility] 3 15:11:24 Multiple joint pain 93438702 Active 2020 Flavia Myers DEVELOPMENT GEOLOGIST, ADMITTING CLERK-C Attn: David monae,[address] [facility], [place], [address], [place] - [facility] 3 15:11:24 Edema of lower extremity 126402263 Active 2021 Flavia Myers DEVELOPMENT GEOLOGIST, ADMITTING CLERK-C Attn: David monae,[address] [facility], [place], [address], [place] [facility] 3 15:11:24 Osteoarth ritis of left knee joint [id number] 109 Active 2022 Flavia Myers DEVELOPMENT GEOLOGIST, ADMITTING CLERK-C Attn: David monae,[address] [facility], [place], [address], [place] 3 15:11:24 Prediabet es 286381843 Active 2022 Flavia Myers DEVELOPMENT GEOLOGIST, ADMITTING CLERK-C Attn: David monae,[address] [facility], [place], [address], [place] [facility] 3 15:11:24 Tear of talofibul ar ligament 194161480 Active 2023 Flavia Myers DEVELOPMENT GEOLOGIST, ADMITTING CLERK-C Attn: David monae,[address] [facility], [place], [address], [place] [facility] 4 15:26:40 Knee pain Active Flavia Myers DEVELOPMENT GEOLOGIST, ADMITTING CLERK-C Attn: David g,2040 [facility], [place], [address], [place] [facility] 3 15:11:24 Tinea corporis 37728562 Completed 06/07/2019 Flavia Myers DEVELOPMENT GEOLOGIST, ADMITTING CLERK-C Attn: David g,20[address] [facility], [place], [address], [place] [facility] 0 10:13:33 Hand eczema 514130394 Active Flavia Myers DEVELOPMENT GEOLOGIST, ADMITTING CLERK-C Attn: David licona,2040 [facility], [place], [place], [address] [place] [address] 2, [place] [facility] 3 15:11:24 Anemia 344077989 Active Flavia Myers DEVELOPMENT GEOLOGIST, ADMITTING CLERK-C Attn: David licona,2040 [facility], [place], [place], [address] [place] [address] 2, [place] - [facility] 3 15:11:24 Essential hypertens ion 91990186 Active Flavia Myers DEVELOPMENT GEOLOGIST, ADMITTING CLERK-C Attn: Accountin monae,2040 [facility], [place], [place], [address] [place] [address] 2, [place] [facility] 3 15:11:24 Ankle pain 512230403 Active Flaviasera Myers DEVELOPMENT GEOLOGIST, ADMITTING CLERK-C Attn: Charlesangy licona,2040 [facility], [place], [place], [address] [place] [address] 2, [place] [facility] 3 15:11:24 Otitis media 77524286 Completed 06/07/2019 Flavia Myers DEVELOPMENT GEOLOGIST, ADMITTING CLERK-C Attn: David monae,2040 [facility], [place], [place], [address] [place] [address] 2, [place] [facility] 0 10:10:08 Acute urticaria 473250208 Completed 06/07/2019 Flavia Myers DEVELOPMENT GEOLOGIST, ADMITTING CLERK-C Attn: Charlesangy licona,2040 [facility], [place], [place], [address] [place] [address] 2, [place] [facility] 0 10:09:30 Obesity 589812013 Active Flaviasera Myers DEVELOPMENT GEOLOGIST, ADMITTING CLERK-C Attn: David g,20[address] [facility], [place], [place], [address] [place] [address] 2, [place] [facility] 3 15:11:24 Otitis media 83621149 Completed 201606/07/2019 Flavia Myers DEVELOPMENT GEOLOGIST, ADMITTING CLERK-C Attn: David g,2040 [facility], [place], [place], [address] [place] [address] 2, [place] - [facility] 0 10:09:44 Ankle edema 17967156 Completed 201606/07/2019 Flavia Myers APN, ADMITTING CLERK-C Attn: David licona,[address]40 [facility], [place], [address], [facility] - [facility] 0 10:19:14 Notes:scoliosis, saw special ist in [place] Some problems listed in Documents: #[id number], #[id number] could not be added to this patient's chart. Please review these documents and add these problems to the patient's chart manually as needed. Problem Notes None recorded. Procedures Surgical History Date Name Laterality Status Provider Name and Address Organization Details Recorded Time 09/15/19 20 Tubal Ligation completed Ketty Cordova MA [facility] 10/03/2019 09:29:17 Cholecystectomy completed Nini Purvis MA [facility] 06/07/2019 09:31:23 Caesarean Section completed Cassandra Louise MA [facility] 05/23/2014 14:32:33 Imaging Results Imaging Date Name Status LastModified by Organiz ation Details LastModified Time 12/30/2022 MRI, cervical spine, w/o contrast completed [email or web address] Information not available 01/28/2023 13:09:58 01/19/2020 MRI, cervical spine, w/o contrast completed [facility] Information not available 01/28/2023 13:08:21 05/07/2023 XR, [facility], [facility] [address] [place], [address], 05/12/2023 08:30:53 05/07/2023 XR, spine, scoliosis series completed [address] [place], [address], 05/26/2023 14:07:36 05/07/2023 XR, spine, scoliosis series completed [address] [place], [address], 05/26/2023 14:08:00 05/07/2023 XR, spine, scoliosis series completed [address] [place], [address], 05/26/2023 14:08:07 05/07/2023 CT, cervical spine, w/o contrast completed [facility] [address] [place], [address], 05/12/2023 08:31:19 12/23/2023 MAMMO, screening, digital, bilateral completed [facility] [address] [place], [address], 12/29/2023 08:04:44 02/02/2024 home sleep study completed [facility] [address], [place], [address], 02/22/2024 14:02:34 Procedure Notes None recorded. Medical Equipment None Reported. Allergies Allergen ID Allergen Name Allergen Category Reaction Reaction Severity Criticality Documentation Date Start Date Code Code System Note Provider Name and Address Organization Details Recorded Time 481672 amlodipin e medicatio n edema severe Not available 06/18/2017 30023 RxNorm Not Available Not Available Not Available 19153 Augmentin medicatio n rash Not available Not available 07/17/20152015 20420 2 RxNorm Not Available Not Available Not Available Medications Name Sig Start Date Stop Date Status Note LastModified by Organization Details LastModified Time loratadin e 10 mg tabs 01/02 completed Not Available Not Available Not Available terbinafi ne cre 1%terbina fine hcl 01/02 completed Not Available Not Available Not Available cyclobenz aprine hcl 10 mg tabs 01/02 completed Not Available Not Available Not Available amoxicill in/clavul anate potassium 875-125 mg tabs 01/02 completed Not Available Not Available Not Available losartan potassium 50 mg tabs 01/12 completed Not Available Not Available Not Available docqlace 100 mg caps 01/02 completed Not Available Not Available Not Available ibuprofen 800 mg tabs 01/02 completed Not Available Not Available Not Available ventolin hfa aerventol in hfa 01/02 completed Not Available Not Available Not Available fluticaso ne spr 50mcgflut icasone propionat e 01/02 completed Not Available Not Available Not Available amox/k clav tab 875mgamox icillin/c lavulanat e potassium 01/02 completed Not Available Not Available Not Available fluconazo le 150 mg tabs 01/02 completed Not Available Not Available Not Available azithromy bam tab 250mgazit hromycin 01/02 completed Not Available Not Available Not Available ferrous sulfate 325 (65 fe) mg tabs 01/02 completed Not Available Not Available Not Available azithromy bam 250 mg tabs 01/02 completed Not Available Not Available Not Available fluticaso ne propionat e 50 mcg/act susp 01/02 completed Not Available Not Available Not Available losartan 50 mg tablet Take 1 tablet every day by oral route in the morning for 30 days. 01/02 completed Not Available Not Available Not Available cyclobenz aprine 10 mg tablet TAKE 1 TABLET BY MOUTH EVERY 8 HOURS NEEDED active Not Available Not Available No t Available amoxicill in 500 mg capsule Take 1 capsule every 8 hours by oral route for 7 days. 08/22 completed Not Available Not Available Not Available medroxypr ogesteron e 10 mg tablet 10/02 completed Not Available Not Available Not Available terbinafi ne HCl 1 % topical cream APPLY TO THE AFFECTED AND SURROUND ING AREAS OF SKIN BY TOPICAL ROUTE ONCE DAILY 01/02 completed Not Available Not Available Not Available metformin 500 mg tablet Take 1 tablet twice a day by oral route. 2023 active Not Available Not Available Not Avai lable clonidine HCl 0.1 mg tablet Take 1 tablet as needed by oral route as needed for 1 day. 01/02 completed Not Available Not Available Not Available cetirizin e 10 mg tablet Take 1 tablet every day by oral route as needed. 11/03 completed Not Available Not Available Not Available azithromy bam 250 mg tablet TAKE 2 TABLETS BY MOUTH FOR 1 DAY THEN TAKE 1 TABLET BY MOUTH DAILY FOR 4 DAYS DIRECTED 08/22 completed Not Available Not Available Not Available ibuprofen 800 mg tablet Take 1 tablet 3 times a day by oral route as needed. active Not Available Not Available No t Available tizanidin e 4 mg tablet TK 1 T PO TID PRN 05/07 completed Not Available Not Available Not Available fluconazo le 150 mg tablet 01/02 completed Not Available Not Available Not Available metoprolo l succinate ER 50 mg tablet,ex tended release 24 hr TAKE 1 TABLET BY MOUTH EVERY DAY active Not Available Not Available No t Available levetirac etam 500 mg tablet TAKE 2 TABLETS BY MOUTH TWICE DAILY FOR 15 DAYS 12/31 completed Not Available Not Available Not Available hydrocodo ne 5 mg-acetam inophen 325 mg tablet 01/02 completed Not Available Not Available Not Available Q-Dryl 25 mg capsule Take 1 capsule 3 times a day by oral route as needed for 30 days. 01/12 completed Not Available Not Available Not Available meloxicam 15 mg tablet 05/07 completed Not Available Not Available Not Available metronida zole 0.75 % (37.5 mg/5 gram) vaginal gel 01/12 completed Not Available Not Available Not Available prednison e 20 mg tablet Take 2 tablets twice a day by oral route as directed for 2 days. 10/02 completed Not Available Not Available Not Available metoprolo l succinate ER 100 mg tablet,ex tended release 24 hr TAKE 1 TABLET BY MOUTH DAILY active Not Available Not Available No t Available methyldop a 250 mg tablet Take 1 tablet twice a day by oral route for 30 days. 06/06 completed Not Available Not Available Not Available atenolol 25 mg tablet TAKE 1 TABLET BY MOUTH EVERY DAY AT BEDTIME 08/15 completed Not Available Not Available Not Available clindamyc in HCl 150 mg capsule 01/28 completed Not Available Not Available Not Available phenytoin sodium extended 100 mg capsule Take 3 capsules every day by oral route at bedtime for 30 days. 06/06 completed Not Available Not Available Not Available phentermi ne 37.5 mg tablet TAKE 1 TABLET BY MOUTH EVERY DAY 12/31 completed Not Available Not Available Not Available amlodipin e 5 mg tablet Take 1 tablet every day by oral route for 30 days. 06/18 completed edema both legs Not Available Not Available Not Available ciproflox acin 500 mg tablet Take 1 tablet every 12 hours by oral route for 10 days. 06/06 completed Not Available Not Available Not Available tramadol 50 mg tablet Take 1 tablet twice a day by oral route as needed for 30 days. 06/06 completed Not Available Not Available Not Available methylpre dnisolone acetate 80 mg/mL suspensio n for injection Take 1 mL by injectio n route for 1 day. 06/06 completed Not Available Not Available Not Available losartan 100 mg-hydroc hlorothia zide 25 mg tablet Take 1 tablet every day by oral route. 09/30 completed Not Available Not Available Not Available oxycodone -acetamin ophen 5 mg-325 mg tablet 11/03 completed Not Available Not Available Not Available ofloxacin 0.3 % ear drops INSTILL 10 DROPS TO AFFECTED EAR EVERY DAY FOR 7 DAYS 04/06 completed Not Available Not Available Not Available amoxicill in 875 mg tablet TAKE 1 TABLET BY MOUTH EVERY 12 HOURS FOR 10 DAYS 04/30 completed Not Available Not Available Not Available DOK 100 mg capsule Take 1 capsule twice a day by oral route as needed for 30 days. 09/27 completed Not Available Not Available Not Available levetirac etam 250 mg tablet 06/06 completed Not Available Not Available Not Available meclizine 25 mg tablet 06/06 completed Not Available Not Available Not Available benzonata te 100 mg capsule TAKE 1 CAPSULE BY MOUTH EVERY 8 HOURS NEEDED 04/30 completed Not Available Not Available Not Available oseltamiv ir 75 mg capsule 09/13 completed Not Available Not Available Not Available tobramyci n 0.3 % eye drops 01/12 completed Not Available Not Available Not Available triamcino lone acetonide 0.1 % topical ointment APPLY A THIN LAYER TO THE AFFECTED AREA(S) BY TOPICAL ROUTE 2 TIMES PER DAY 01/12 completed Not Available Not Available Not Available levetirac etam 750 mg tablet TAKE 1 TABLET BY MOUTH TWICE DAILY active Not Available Not Available No t Available hydrochlo rothiazid e 25 mg tablet TAKE 1 TABLET BY MOUTH EVERY DAY DIRECTED PRN edema 2023 active Not Available Not Available Not Avai lable pyridoxin e (vitamin B6) 100 mg tablet TAKE 1 TABLET BY MOUTH ONCE DAILY active Not Available Not Available No t Available metoprolo l succinate ER 25 mg tablet,ex tended release 24 hr TAKE 1 TABLET BY MOUTH EVERY DAY 08/30 completed increase d to 50mg Not Available Not Available Not Available ergocalci ferol (vitamin D2) 1,250 mcg (50,000 unit) capsule TAKE 1 CAPSULE BY MOUTH EVERY WEEK 08/30 completed Not Available Not Available Not Available ibuprofen 600 mg tablet TAKE 1 TABLET BY MOUTH EVERY 6 HOURS NEEDED FOR PAIN 01/28 completed wants refill for 800mg Not Available Not Available Not Available levofloxa bam 500 mg tablet Take 1 tablet every 24 hours by oral route for 10 days. 11/03 completed Not Available Not Available Not Available levofloxa bam 750 mg tablet TAKE 1 TABLET BY MOUTH EVERY DAY 01/28 completed Not Available Not Available Not Available methylpre dnisolone 4 mg tablets in a dose pack Take 1 dose pk by oral route. 01/28 completed Not Available Not Available Not Available albuterol sulfate HFA 90 mcg/actua tion aerosol inhaler INHALE 2 PUFFS BY MOUTH EVERY 4 HOURS NEEDED 08/30 completed Not Available Not Available Not Available lisinopri l 40 mg tablet Take 1 tablet every day by oral route in the morning for 30 days. 01/12 completed Not Available Not Available Not Available ondansetr on 4 mg disintegr ating tablet 05/07 completed Not Available Not Available Not Available cefdinir 300 mg capsule TAKE 1 CAPSULE BY MOUTH EVERY 12 HOURS FOR 10 DAYS 02/24 completed Not Available Not Available Not Available losartan 100 mg tablet TAKE 1 TABLET BY MOUTH EVERY DAY active Not Available Not Available No t Available doxycycli ne hyclate 100 mg tablet 10/02 completed Not Available Not Available Not Available phentermi ne 37.5 mg capsule TAKE 1 CAPSULE BY MOUTH EVERY DAY active Not Available Not Available No t Available loratadin e 10 mg tablet Take 1 tablet every day by oral route in the morning for 30 days. 08/15 completed Not Available Not Available Not Available naproxen 500 mg tablet TAKE 1 TABLET BY MOUTH TWICE DAILY WITH FOOD 01/28 completed Not Available Not Available Not Available amoxicill in 875 mg-potass ium clavulana te 125 mg tablet Take 1 tablet every 12 hours by oral route for 10 days. 01/12 completed Not Available Not Available Not Available neomycin- polymyxin -hydrocor t 3.5 mg-10,000 unit/mL-1 % ear drops,kraig p 01/28 completed Not Available Not Available Not Available Benicar 40 mg tablet 01/02 completed Not Available Not Available Not Available nitrofura ntoin monohydra te/macroc rystals 100 mg capsule 06/06 completed Not Available Not Available Not Available FeroSul 325 mg (65 mg iron) tablet TAKE 1 TABLET BY MOUTH ONCE DAILY WITH A MEAL 05/07 completed Not Available Not Available Not Available diclofena c 1 % topical gel Apply 4 g 4 times a day by topical route for 30 days. 09/13 completed Not Available Not Available Not Available Virtussin AC 10 mg-100 mg/5 mL oral liquid 01/12 completed Not Available Not Available Not Available Eczema 09/13 completed Not Available Not Available Not Available Flonase Allergy Relief 50 mcg/actua tion nasal spray,kraig [place] 1 spray every day by intranas al route. 2021 active Not Available Not Available Not Avai lable ergocalci ferol (vitamin D2) 50 mcg (2,000 unit) capsule Take 2 capsules every day by oral route. 2023 active Not Available Not Available Not Avai lable Nayzilam 5 mg/spray (0.1 mL) nasal spray SPRAY ONCE INTO THE NOSE DIRECTED NEEDED FOR active Not Available Not Available No t Available BinaxNOW COVID-19 Ag Self Test kit TEST DIRECTED TODAY 04/30 completed Not Available Not Available Not Available Paxlovid 300 mg (150 mg x 2)-100 mg tablets in a dose pack TAKE BY MOUTH DIRECTED PER PACKAGE DIRECTIO NS FOR 5 DAYS 09/11 completed Not Available Not Available Not Available Vitals Date Recorded Body height Respiratory rate Body mass index (BMI) Body weight Oxygen saturation Oxygen saturation in Arterial blood by Pulse oximetry Heart rate Body temperature Systolic blood pressure Diastolic blood pressure Provider Name and Address Organization Details Last Updated DateTime 3 144.78 cm 16 /min 51.9 kg/m2 597530. 17 g 98 % 98 % 74 /min 98 [degF] 176 mm[Hg] 114 mm[Hg] SHARIFA Irvin [facility] 3 16:23:52 Date Recorded Systolic blood pressure Diastolic blood pressure Provider Name and Address Organization Details Last Updated DateTime 01/28/2023 156 mm[Hg] 96 mm[Hg] Flavia Myers APN, NILSON-C Attn: Accounting,[address] [place], [address], [facility] 01/28/2023 16:33:59 Date Recorded Body height Body mass index (BMI) Body weight Heart rate Respiratory rate Body temperature Systolic blood pressure Diastolic blood pressure Provider Name and Address Organization Details Last Updated DateTime 4 144.78 cm 53.3 kg/m2 786143. 08 g 79 /min 16 /min 98.3 [degF] 156 mm[Hg] 98 mm[Hg] Mami Plummer MA [facility] 4 15:59:30 Date Recorded Body height Body mass index (BMI) Body weight Oxygen saturation Oxygen saturation in Arterial blood by Pulse oximetry Heart rate Respiratory rate Body temperature Systolic blood pressure Diastolic blood pressure Provider Name and Address Organization Details Last Updated DateTime 4 144.78 cm 53 kg/m2 464683. 49 g 97 % 97 % 76 /min 16 /min 97.2 [degF] 126 mm[Hg] 89 mm[Hg] Nini Purvis MA [facility] 4 16:07:56 Date Recorded Body height Body mass index (BMI) Body weight Oxygen saturation Oxygen saturation in Arterial blood by Pulse oximetry Heart rate Respiratory rate Body temperature Systolic blood pressure Diastolic blood pressure Provider Name and Address Organization Details Last Updated DateTime 4 144.78 cm 52.4 kg/m2 952185. 35 g 97 % 97 % 82 /min 16 /min 97.8 [degF] 156 mm[Hg] 112 mm[Hg] SHARIFA Irvin [facility] 4 14:49:21 Date Recorded Systolic blood pressure Diastolic blood pressure Provider Name and Address Organization Details Last Updated DateTime 08/31/2023 142 mm[Hg] 98 mm[Hg] Flavia Myers APN, NILSON-Shiraz Attn: Accounting[address] [place], [address], [facility] 08/31/2023 15:05:21 Date Recorded Body height Body mass index (BMI) Body weight Oxygen saturation Oxygen saturation in Arterial blood by Pulse oximetry Heart rate Respiratory rate Body temperature Systolic blood pressure Diastolic blood pressure Provider Name and Address Organization Details Last Updated DateTime 4 144.78 cm 54.1 kg/m2 076189. 45 g 98 % 98 % 96 /min 16 /min 98.6 [degF] 177 mm[Hg] 102 mm[Hg] Nini Purvis MA [facility] 4 14:56:16 Social History Question Answer Notes LastModified by Organization Details LastModified Time Tobacco Smoking Status Former Smoker quit - 1999 Nini Purvis MA [facility], [facility] 06/07/2019 09:27:41 Do You Have An Advance Directive? Yes Information not available 08/30/2020 What Is Your Level Of Alcohol Consumption? Occasional Information not available 04/06/2023 Are You Blind Or Do You Have Difficulty Seeing? No Information not available 05/23/2014 What Is Your Level Of Caffeine Consumption? Occasional [email or web address] Information not available 08/31/2023 How Much Tobacco Do You Chew? None Information not available 05/23/2014 In The 14 Days Before Symptom Onset, Have You Had Close Contact With A Laboratory-con firmed COVID-19 While That Case Was Ill? No [email or web address] Information not available 04/30/2022 In The 14 Days Before Symptom Onset, Have You Had Close Contact With A Person Who Is Under Investigation For COVID-19 While That Person Was Ill? No [email or web address] Information not available 09/11/2021 Have You Been To An Area Known To Be High Risk For COVID-19? No [email or web address] Information not available 09/11/2021 Are You Currently Employed? Yes Information not available 2020 Are You Deaf Or Do You Have Serious Difficulty Hearing? No Information not available 05/23/2014 What Type Of Diet Are You Following? REGULAR Information not available 05/23/2014 Which Illicit Or Recreational Drugs Have You Used? Denies Information not available 06/07/2019 Do You Or Have You Ever Used E-cigarettes Or Vape? Never Used Electronic Cigarettes Information not available 06/07/2019 Education 10 Information not available 05/23/2014 What Is Your Occupation? [employer] Information not available 06/07/2019 Are There Any Guns Present In Your Home? No Information not available 06/07/2019 Hard Of Hearing Or Deaf In One Or Both Ears? No Information not available 05/23/2014 Legally Blind In One Or Both Eyes? No Information not available 05/23/2014 Marital Status Single Informatio n not available 05/23/2014 What Was The Date Of Your Most Recent Tobacco Screening? 01/26/2024 Information not available 01/26/2024 How Many Children Do You Have? 1 Information not available 08/30/2020 Performs Monthly Self-breast Exam? No Information not available 06/07/2019 What Is Your Relationship Status? Single Information not available 2020 Do You Use Your Seat Belt Or Car Seat Routinely? Yes Information not available 2020 Seat Belts Used Routinely Yes Information not available 06/07/2019 Are You Sexually Active? No Information not available 08/30/2020 Smoke Alarm In Home Yes Information not available 06/07/2019 Do You Have Smoke And Carbon Monoxide Detectors In Your Home? Yes Information not available 2020 At What Age Did You Start Smoking Tobacco? 18 Information not available 06/07/2019 Are You Passively Exposed To Smoke? No Information not available 2020 Do You Or Have You Ever Used Smokeless Tobacco? Never Used Smokeless Tobacco Information not available 06/07/2019 How Much Tobacco Do You Smoke? 0.25 PPD Information not available 06/07/2019 General Stress Level Medium Information not available 06/07/2019 Do You Feel Stressed (tense, Restless, Nervous, Or Anxious, Or Unable To Sleep At Night)? [id number] Stressed Information not available 01/26/2024 Do You Use Any Illicit Or Recreational Drugs? No Information not available 2020 Do You Use Sunscreen Routinely? Yes Information not available 12/17/2020 Has Tobacco Cessation Counseling Been Provided? Yes Information not available 08/22/2021 On What Date Was Tobacco Cessation Counseling Provided? 01/26/2024 Information not available 01/26/2024 How Many Years Have You Smoked Tobacco? 2 Information not available 06/07/2019 What Type Of Noise Exposure Are You Exposed To? NoExposureToExcessiveNo ise [email or web address] Information not available 02/24/2023 Do You Or Have You Ever Used Any Other Forms Of Tobacco Or Nicotine? No Information not available 2020 Sex: Female Functional Status Question Answer Note LastModified by Organization D etails LastModified Time Are you able to care for yourself? Yes Information n ot available 2020 What is your exercise level? None Information not available 12/17/2020 Mental Status None recorded. Family History Relationship Description Onset Age of this Age Resolved Age Notes LastModified by Organization Details LastModified Time Father Diabetes mellitus Not available 2014 15:00:26 Father Hypertensive disorder Not available 2014 15:00:26 Father Gout Not available 06/07/2019 09:26:59 Father Arthritis Not availab le 06/07/2019 09:27:13 Father Malignant tumor of pancreas 64 [email or web address] Not available 2020 12:01:05 Father Cirrhosis of liver [email or web address] Not available 09/11 11:46:55 Sister Hypertensive disorder Not available 2014 15:00:26 Sister Arthritis Not availab le 06/07/2019 09:27:13 Medical History Condition Response Coronary Artery Disease N Other N Atrial Fibrillation N High Blood Pressure Y Thyroid Problems N Kidney or Bladder Problems Y GI Problems N Depression Y COPD N Blood Clots N Eating Disorder Y Skin Problems N Anemia Y Heart Attack (TN) N Diabetes N Anxiety Disorder N Muscle, Joint, or Bone Problems Y Seizures/Epilepsy Y Acid Reflux (GERD) N Cancer N Stroke N Asthma N Allergies N ADHD N Substance Abuse N High Cholesterol N Hepatitis N Liver Disease N Schizophrenia N Headaches N Osteoporosis N Heart Failure N Gynecological History Statement/Question Response Flow Heavy Date of LMP 09/08/2019 Frequency of Cycle (Q days) 28 Duration of Flow (days) 5 Age at Menarche Current Control Method Tubal Ligat ion Age at First Child 33 LMP Approximate Obstetrics History GPAL:G 1 P 1 0 0 1 Type Value Full Term 1 Living 1 Total 1 Immunizations Vaccine Type Date Status Note Provider Name and Address Organization Details Recorded Time Influenza, split virus, quadrivalent, preservative 04/18/19 21 cancelled patient objection Flavia Myers APN, ADMITTING CLERK-C Attn: [employer],[address] [place] [address], [id number], [facility] 2020 15:06:38 Past Encounters Encounter ID Performer Location Encounter Start Date Encounter Closed Date Diagnosis/Indication Diagnosis SNOMED-CT Code Diagnosis ICD10 Code Diagnosis Note [id number] Lesli (Adult Med) [address] [place] [id number] 0 05/23/2014 14:12:52 05/23/2014 14:58:43 Tinea corporis 06986497 Hand eczema 166216762 Knee pain 07260523 Adult heal th examination [id number] ÁNGEL Marquez (Adult Med) [address] [place] [address] 91408-601 0 07/25/2014 14:29:20 07/25/2014 15:33:58 Adult health examination 513339856 Hand eczema 744530798 Knee pain 59750995 Tinea corporis 66033415 Anemia 893040566 [id number] EL Garcia (Adult Med) [address] [place] [address] [id number] 0 11/07/2014 14:41:37 11/07/2014 15:58:25 Adult health examination 413983280 Anemia 324427744 Hand eczema 039564169 Knee pain 86700190 Tinea corporis 53608213 Essential hypertension 03192372 Ankle pain 549283716 [id number] ÁNGEL Marquez (Adult Med) [address] [place] [address] 43389-074 0 01/08/2015 15:02:50 01/10/2015 11:45:05 Adult health examination 150483191 Z00.00 Anemia 427160418 D64.9 Ankle pain 184174452 M25 .579 Essential hypertension 77709687 I10 Hand eczema 140740652 L3 0.9 Knee pain 45173579 M25.5 63 arthritis worse right worse than left Tinea corporis 91592101 B35.4 [id number] ÁNGEL Marquez (Adult Med) [address] [place] [address] [id number] 0 05/11/2015 11:12:18 05/11/2015 12:27:15 Essential hypertension 72800186 I10 Anemia 325596629 D64.9 Hand eczema 546620465 L3 0.9 Knee pain 85354284 M25.5 63 arthritis worse right worse than left Tinea corporis 13806359 B35.4 Otitis media 00546201 H6 6.91 [id number] ÁNGEL Marquez (Adult Med) [address] [place] [address] 53407-456 0 07/17/2015 15:00:39 07/17/2015 15:52:35 Essential hypertension 69799278 I10 Anemia 167361995 D64.9 Ankle pain 566387091 M25 .579 Hand eczema 032768418 L3 0.9 Knee pain 89018677 M25.5 63 arthritis worse right worse than left Obesity 388444236 E66.9 Adult heal th examination 718091852 Z00.00 [id number] ÁNGEL Marquez (Adult Med) [address] [place] [address] 72106-705 0 01/03/2016 13:47:52 01/03/2016 14:28:57 Essential hypertension 88635999 I10 Obesity 778243681 E66.9 Anemia 367977916 D64.9 Hand eczema 517665282 L3 0.9 [id number] ÁNGEL Marquez (Adult Med) [address] [place] [address] [id number] 0 04/11/2016 12:00:23 04/11/2016 12:58:05 Anxiety 43949476 F41.9 discussed starting to walk as tolerated daily, trying calming measures for recent onset of stressors. Knee pain 84244080 M25.5 63 got xrays, showed arthritis bilaterall y. would like to see specialist for further options. Essential hypertension 06954092 I10 has been uncontroll ed for a while now, has been in the ER for it. continue taking readings at home, return in 10d for official reading. Obesity 655461137 E66.9 [id number] ÁNGEL Marquez (Adult Med) [address] [place] [address] 59944-853 0 06/13/2016 10:11:38 06/13/2016 13:21:16 Otitis media 34731648 H66.91 left Knee pain 42625501 M25.5 63 got xrays, showed arthritis bilaterall y. would like to see specialist for further options. Essential hypertension 45431629 I10 has been uncontroll ed for a while now, has been in the ER for it. continue taking readings at home, return in 10d for official reading. [id number] ÁNGEL Marquez (Adult Med) [address] [place] [address] 04412-524 0 12/12/2016 14:41:59 12/16/2016 10:06:43 Ankle pain 277000232 M25.579 Ankle edema 67517188 R60 .0 Knee pain 03356067 M25.5 63 got xrays, showed arthritis bilaterall y. would like to see specialist for further options. [id number] ÁNGEL Marquez (Adult Med) [address] [place] [address] 61910-319 0 01/12/2017 14:35:07 01/13/2017 08:52:47 Disorder of patellofemoral joint 597050197 M22.2X9 Knee pain 32116120 M25.5 63 got xrays, showed arthritis bilaterall y. would like to see specialist for further options. Obesity 706899745 E66.9 Essential hypertension 60393585 I10 has been uncontroll ed for a while now, has been in the ER for it. continue taking readings at home, return in 10d for official reading. [id number] ÁNGEL Marquez (Adult Med) [address] [place] [address] [id number] 0 04/13/2017 14:38:49 04/13/2017 16:50:37 Essential hypertension 55780294 I10 has been uncontroll ed for a while now, has been in the ER for it. continue taking readings at home, return in 10d for official reading. Obesity 502009339 E66.9 Seizure 50192651 R56.9 Snoring 62531768 R06.83 [id number] ÁNGEL Marquez (Adult Med) [address] [place] [address] [id number] 0 06/18/2017 12:34:53 06/18/2017 15:04:32 Essential hypertension 21622130 I10 has been uncontroll ed for a while now, has been in the ER for it. continue taking readings at home, return in 10d for official reading. Vitamin D deficiency 347 64710 E55.9 Anemia 654557085 D64.9 Seizure 93045069 R56.9 Obesity 562894972 E66.9 [id number] ÁNGEL Marquez (Adult Med) [address] [place] [address] 57681-803 0 08/04/2017 16:39:21 08/05/2017 08:55:34 Ankle pain 350621455 M25.579 right Iron deficiency 81104299 E61.1 Obesity 565082402 E66.9 Essential hypertension 04845986 I10 has been uncontroll ed for a while now, has been in the ER for it. continue taking readings at home, return in 10d for official reading. Anemia 533352782 D64.9 Vitamin D deficiency 347 73315 E55.9 [id number] ÁNGEL Marquez (Adult Med) [address] [place] [address] [id number] 0 08/27/2017 12:34:41 08/31/2017 08:45:40 Knee pain 71332654 M25.561 got xrays, showed arthritis bilaterall y. would like to see specialist for further options. Ankle pain 555798093 M25 .579 right [id number] ÁNGEL Marquez (Adult Med) [address] [place] [address] 37017-234 0 10/07/2017 11:16:20 10/08/2017 11:02:19 Seizure 99839405 R56.9 Disorder o f patellofemoral joint 732287325 M22.2X9 Ankle pain 813840704 M25 .579 right Chiari mal formation type I 014562263 G93.5 Knee pain 54134511 M25.5 63 got xrays, showed arthritis bilaterall y. would like to see specialist for further options. Essential hypertension 87835486 I10 has been uncontroll ed for a while now, has been in the ER for it. continue taking readings at home, return in 10d for official reading. Obesity 985227480 E66.9 [id number] ÁNGEL Marquez (Adult Med) [address] [place] [address] 10129-022 0 11/03/2017 14:07:30 11/04/2017 09:57:15 Allergic rhinitis 51540213 J30.1 Headache 28307700 R51 Ankle pain 156183784 M25 .579 right Chiari mal formation type I 939455077 G93.5 Vitamin D deficiency 347 73270 E55.9 Seizure 71919389 R56.9 Obesity 382601388 E66.9 Essential hypertension 15803500 I10 has been uncontroll ed for a while now, has been in the ER for it. continue taking readings at home, return in 10d for official reading. [id number] ÁNGEL Marquez (Adult Med) [address] [place] [address] 46214-925 0 11/18/2017 11:46:13 11/19/2017 15:47:58 Ankle edema 47334224 R60.0 Essential hypertension 60761480 I10 has been uncontroll ed for a while now, has been in the ER for it. continue taking readings at home, return in 10d for official reading. Ankle pain 513536078 M25 .579 right Chiari mal formation type I 074410504 G93.5 Vitamin D deficiency 347 58125 E55.9 Knee pain 71668239 M25.5 63 got xrays, showed arthritis bilaterall y. would like to see specialist for further options. Obesity 832466018 E66.9 [id number] ÁNGEL Marquez (Adult Med) [address] [place] [address] 01/11/2018 15:01:08 01/12/2018 10:48:05 Vitamin D deficiency 05099694 E55.9 Essential hypertension 14818943 I10 has been uncontroll ed for a while now, has been in the ER for it. continue taking readings at home, return in 10d for official reading. Anemia 800005636 D64.9 Disorder o f patellofemoral joint 921008325 M22.2X9 Obesity 691255308 E66.9 Headache 92209098 R51 Tear of me dial meniscus of knee 279808299 S83.242A left Knee pain 90555263 M25.5 63 got xrays, showed arthritis bilaterall y. would like to see specialist for further options. Chiari mal formation type I 826656131 G93.5 [id number] ÁNGEL Marquez (Adult Med) [address] [place] [address] 18070-296 0 05/03/2018 15:15:29 05/04/2018 10:07:53 Disorder of patellofemoral joint 789260693 M22.2X9 Ankle pain 665826400 M25 .579 right Tear of me dial meniscus of knee 827652047 S83.242A left Chiari mal formation type I 680297874 G93.5 Vitamin D deficiency 347 19362 E55.9 Seizure 38079891 R56.9 Knee pain 92640544 M25.5 63 got xrays, showed arthritis bilaterall y. would like to see specialist for further options. Essential hypertension 55947100 I10 has been uncontroll ed for a while now, has been in the ER for it. continue taking readings at home, return in 10d for official reading. Obesity 521999081 E66.9 [id number] ÁNGEL Marquez (Adult Med) [address] [place] [address] 95895-387 0 09/27/2018 12:27:47 09/28/2018 09:01:24 Tear of medial meniscus of knee 651330479 S83.242A left Ankle pain 417506299 M25 .579 right Anemia 650759609 D64.9 Allergic rhinitis 989676 04 J30.1 Chiari mal formation type I 818741796 G93.5 Vitamin D deficiency 347 42618 E55.9 Seizure 37631977 R56.9 Disorder o f patellofemoral joint 510650547 M22.2X9 Obesity 500765156 E66.9 Essential hypertension 59498174 I10 has been uncontroll ed for a while now, has been in the ER for it. continue taking readings at home, return in 10d for official reading. [id number] ÁNGEL Marquez (Adult Med) [address] [place] [address] 12/13/2018 10:33:39 12/14/2018 08:54:32 Otitis media 12397629 H66.91 left Essential hypertension 54530889 I10 has been uncontroll ed for a while now, has been in the ER for it. continue taking readings at home, return in 10d for official reading. Iron deficiency 95115219 E61.1 Tear of me dial meniscus of knee 991869448 S83.242A left Allergic rhinitis 805974 04 J30.1 Vitamin D deficiency 347 29321 E55.9 Seizure 93551881 R56.9 Obesity 982549209 E66.9 [id number] Flavia Myers APN, ADMITTING CLERK-C [facility] (Adult Med) [address] [place] [address] 06/07/2019 08:27:04 06/08/2019 08:15:54 Essential hypertension 15057310 I10 cont hctz 25 mg, losartan 100 mg Knee pain 88567983 M25.5 71 was seeing ortho getting injections , needs new referral Adult heal th examination 480831042 Z00.01 Encouraged routine [employer], vision, dental exams, well balanced diet. Scoliosis deformity of spine 231039590 M41.9 used to see ortho in [place], would like to see if ortho can address this as well, has not been checked in many years Vitamin D deficiency 347 86181 E55.9 low, check lab Obesity 902163882 E66.9 advised low fat, low cholestero l diet, regular exercise and weight reduction. Seizure 83022724 R56.9 slu neuro, hx of chiari malformati on, rx by neuro Depressive disorder 6709 9007 F32.9 declines referral for mood at this time, dwp risks, advised to call if changes Iron deficiency 26773977 E61.1 check labs, cont iron replacemen t Dysfunctio n of eustachian tube 59988758 H68.023 hx of AOM, dwp to start inhaled nasal steroid to reduce inflammati on [id number] Flavia Myers APN, SHAHRIAR [facility]ccann (Adult Med) [address] [place] [address] 09/14/2019 08:04:34 09/14/2019 11:03:25 Pain of right ankle joint 3210190526 4191478 M25.571 hx of sprain, increased swelling lately, dwp getting new xray and PT and possible MRI, prior US showed tear to ligament, advised RICE Anemia 020031168 D64.9 cont iron replacemen t, pt having uterine ablation tomorrow and will repeat cbc in a few months Essential hypertension 95728258 I10 cont hctz 25 mg, losartan 100 mg Obesity 857676761 E66.9 advised low fat, low cholestero l diet, regular exercise and weight reduction. [id number] Flavia Myers APN, SHAHRIAR Mccann (Adult Med) [address] [place] [address] 10/03/2019 08:38:18 10/04/2019 20:53:54 History of pneumonia 977457607 Z87.01 recent chest xray showed infiltrate s, has been on various abx, but nothing is clearing it up, will give levaquin, dwp r/b/se; Expiratory wheezing 9763 007 R06.2 dwp cont inhaler prn and will give steroid dose pack Allergic rhinitis 137314 04 J30.9 start antihistam ine [id number] Flavia Myers APN, FNP-C [facility] (Adult Med) [address] [place] [address] 11/04/2019 08:00:40 11/09/2019 23:49:44 Iron deficiency 69079811 E61.1 check labs, cont iron replacemen t Multiple joint pain 3567 8005 M25.50 knees, ankles and hx of scoliosis as well, dwp prn use muscle relaxer Essential hypertension 55505212 I10 cont hctz 25 mg, losartan 100 mgsuggeste d she check at home, obtain cuff [id number] Flavia Myers APN, SHAHRIAR Mccann (Adult Med) [address] [place] [address] 2020 14:37:04 04/19/2020 09:57:11 Iron deficiency 14381955 E61.1 check labs, cont iron replacemen t Influenza vaccination declined 759769918 Z28.21 Essential hypertension 64143271 I10 cont hctz 25 mg, losartan 100 mgelevated today, will start atenolol; suggested she check at home, obtain cuff Dysfunctio n of eustachian tube 13598244 H68.023 hx of AOM, dwp to start inhaled nasal steroid to reduce inflammati on Acute otitis media 68657 03 H65.03 Rickey TM erythema and edema/bulg ing, dwp will rx amox [id number] Flavia Myers APN, SHAHRIAR Mccann (Adult Med) [address] [place] [address] 05/14/2020 08:16:18 05/15/2020 08:57:30 Allergic rhinitis 21149185 J30.9 start antihistam ine Dysfunctio n of eustachian tube 47844407 H68.023 hx of AOM, dwp to start inhaled nasal steroid to reduce inflammati on, may need to be referred to ent if not improving Acute uppe r respiratory infection 28568252 J06.9 will cover for bacterial infection, last abx was amox. dwp to increase fluids, OTC cold med prn, rest, good handwashin g [id number] Flavia Myers APN, SHAHRIAR Mccann (Adult Med) [address] [place] [address] 06/25/2020 08:13:34 06/26/2020 10:02:23 Postviral cough 264014723 R05 prn inhaler, increase movement, pneumonia precaution s o2 prn-not using now COVID-19 059721891 U07.1 Pt home now, please get medical records from [place], was in ICU. dwp care at home, rest, diet and fluids, work note when pt is ready to RTW Malaise and fatigue 2717 55778 R53.83 r/t covid 19 [id number] Flavia Myers APN, FNP-C [facility] (Adult Med) [address] [place] [address] 08/15/2020 16:12:49 08/15/2020 19:44:18 Depressive disorder 09810626 F32.9 declines referral for mood at this time, dwp risks, advised to call if changes Essential hypertension 15027443 I10 cont hctz 25 mg, losartan 100 mg; elevated today, following with cardiology Morbid obesity 119674501 E66.01 advised low fat, low cholestero l diet, regular exercise and weight reduction. Pain in left knee 841151 4594 69310 M25.562 ttp medial left knee, currently sees [facility] ortho, advised pt ot call for apt, needs to work on getting weight down [id number] Flavia Myers APN, FNP-C [facility] (Adult Med) [address] [place] [address] 08/22/2020 09:47:26 08/23/2020 08:36:28 Hypertensive disorder 51489391 I10 elevated, only took her medication right before she left for her apt, denies cp or sob;[facility] importance of medication compliance , on recheck was slightly lower by provider, advised to cont med and schedule nurse visit next week to re check bp again, if any symptoms of stroke or heart attack to call 911pt was seen by cardiology in past [id number] DAVID [facility] (Adult Med) [address] [place] [address] 08/30/2020 10:59:38 09/03/2020 18:48:51 Essential hypertension 45902167 I10 cont hctz 25 mg, losartan 100 mg; elevated today, following with cardiology [id number] Flavia Myers APN, FNP-C [facility] (Adult Med) [address] [place] [address] 09/13/2020 16:05:48 09/14/2020 21:07:22 Essential hypertension 04710526 I10 stable todaycont hctz 25 mg, losartan 100 mg; following with cardiology Morbid obesity 972061323 E66.01 advised low fat, low cholestero l diet, regular exercise and weight reduction. Multiple joint pain 3567 8005 M25.50 bilateral hands, knees, ankles and hx of scoliosis as well, dwp prn use muscle relaxerpt has family with AI disease, dwp will add to labs Endocrine/ metabolic screening 877130902 Z13.708 [id number] Flavia Myers APN, FNP-C [facility] (Adult Med) [address] [place] [address] 12/17/2020 14:58:02 12/18/2020 14:12:41 Morbid obesity 621684265 E66.01 advised low fat, low cholestero l diet, regular exercise and weight reduction. Disorder o f patellofemoral joint 713221936 M22.2X9 pt was seeing Dr Campos, will send new referral Essential hypertension 84116067 I10 elevated today- out of medication no cp or sobcont hctz 25 mg, losartan 100 mg; following with cardiology Pain of ri ght ankle joint 6482203261 5040221 M25.571 hx of sprain, increased swelling lately, dwp getting new xray and PT and possible MRI, prior US showed tear to ligament, advised RICE [id number] Flavia Myers APN, FNP-C [facility] (Adult Med) [address] [place] [address] 05/07/2021 11:46:27 05/08/2021 16:03:08 Essential hypertension 38404059 I10 elevated today- out of medication no cp or sobcont hctz 25 mg, losartan 100 mg; following with cardiology Morbid obesity 173562913 E66.01 advised low fat, low cholestero l diet, regular exercise and weight reduction. was put on phentermin e by cardiology Disorder o f patellofemoral joint 438010878 M22.2X9 pt was seeing Dr Campos, has apt soon Acute left otitis media 959035300 H66.92 left TM erythema and edema/bulg ing, will treat with amox and adivsed pt to resume flonase Renewal of prescription 450966911 Z76.0 Fatigue 09735892 R53.83 will check labs Long-term drug therapy 952521284 Z79.176 [id number] Flavia Myers APN, FNP-C [facility] (Adult Med) [address] [place] [address] 08/22/2021 11:31:41 08/23/2021 07:52:22 COVID-19 177807939 U07.1 pt dx on 08/16/21, was given paxloviddw p care at home, rest, diet and fluids, work note when pt is ready to RTW Acute otitis media 87049 03 H65.03 finished z pack from and rickey ears still pressure and painful, will send cefdinir Edema of l ower extremity 950447212 R60.0 take additional hctz prn edema Obesity 603277702 E66.9 advised low fat, low cholestero l diet, regular exercise and weight reduction. pt on phentermin e from cardio- will adjust med as needed at f/u [id number] Flavia Myers APN, [facility] (Adult Med) [address] [facility] [place] [address] 09/11/2021 11:40:41 09/12/2021 14:59:02 Pain of right calf 5482087594 207250 M79.661 neg sergio's will still start work up for dvt, dwp testing, plan pending Edema of l ower extremity 002180039 R60.0 take additional hctz prn edema Morbid obesity 491204413 E66.01 advised low fat, low cholestero l diet, regular exercise and weight reduction. was put on phentermin e by cardiology Essential hypertension 97990387 I10 elevated today- out of medication no cp or sobcont hctz 25 mg, losartan 100 mg; following with cardiology Disorder o f joint of right ankle 4432421208 1038962 M25.871 hx of OA, stability issues, increased fallingpt requested handicap tag, dwp to bring in; [id number] Flavia Myers APN, [facility] (Adult Med) [address] [place] [address] 04/30/2022 15:37:54 05/06/2022 14:06:51 Essential hypertension 11411941 I10 elevated today- did not take her med- saw cardio last weekno cp or sobcont hctz 25 mg, losartan 100 mg; following with cardiology Morbid obesity 381596649 E66.01 advised low fat, low cholestero l diet, regular exercise and weight reduction. was put on phentermin e by cardiology Vitamin D deficiency 347 21476 E55.9 low , start high dose weekly replacemen t Edema of l ower extremity 678624323 R60.0 take additional hctz prn edema Osteoarthr itis of left knee joint 1894605556 87643 M17.12 xray reviewed, dwp to call ortho for follow; Prediabetes 789196309 R7 3.03 a1c 5.9dwp diet changes, will start metformin [id number] Flavia Myers APN, [facility] (Adult Med) [address] [place] [address] 09/30/2022 09:27:48 10/01/2022 13:15:06 Essential hypertension 00406079 I10 elevated today- was also elevated at cardio but was did not change meds, pt took med this am on way to office, slight improvemen tno cp or sobcont hctz 25 mg, losartan 100 mg; following with cardiology Obesity 137442989 E66.9 advised low fat, low cholestero l diet, regular exercise and weight reduction. pt on phentermin e from cardio- will adjust med as needed at f/u Seizure 87432900 R56.9 slu neuro, hx of chiari malformati on, rx by neuro Prediabetes 524665568 R7 3.03 a1c 5.9dwp diet changes, will start metformin Vitamin D deficiency 347 17141 E55.9 low , start high dose weekly replacemen t [id number] Flavia Myers APN, SHAHRIAR Mccann (Adult Med) [address] [place] [address] 12/31/2022 14:38:28 01/12/2023 16:47:54 Vitamin D deficiency 73882543 E55.9 low , cont high dose weekly replacemen t Essential hypertension 55090397 I10 elevated at cardio but was did not change meds, pt took med this am on way to office, slight improvemen tno cp or sobcont hctz 25 mg, losartan 100 mg; following with cardiology Obesity 757042889 E66.9 advised low fat, low cholestero l diet, regular exercise and weight reduction. pt on phentermin e from cardio- will adjust med as needed at f/u Seizure 99419676 R56.9 slu neuro, hx of chiari malformati on, rx by neuro Prediabetes 768193343 R7 3.03 a1c 5.9dwp diet changes, will start metformin Edema of l ower extremity 723970161 R60.0 take additional hctz prn edema [id number] Flavia Myers APN, SHAHRIAR Mccann (Adult Med) [address] [facility] [place] [address] 01/28/2023 16:01:37 01/29/2023 13:14:26 Recurrent acute otitis media of bilateral ears 7372873197 519400 H66.93 Rickey TM erythema and edema/bulg ing, third infection in past two months, please see ENT as planned Essential hypertension 55094927 I10 elevated at cardio but was did not change medsno cp or sobcont hctz 25 mg, losartan 100 mg; following with cardiology Multiple joint pain 3567 8005 M25.50 bilateral hands, knees, ankles and hx of scoliosis as well, dwp prn use muscle relaxerpt has family with AI disease, dwp will add to labs Nasal congestion [id number] R09.81 pt's work requiring her to have covid test [id number] MD Siobhan Garces (Adult Med) [address] [place] [address] 02/24/2023 15:48:51 02/25/2023 10:32:40 Chronic otitis externa [id number] H60.63 i suspect infections are her ext. ear keep ears dry and return if it gets infected [id number] Flavia Myers APN, SHAHRIAR Mccann (Adult Med) [address] [facility] [place] [address] 04/06/2023 15:54:13 04/07/2023 16:25:10 Essential hypertension [id number] I10 cardio changed medsno cp or sobcont hctz 25 mg, losartan 100 mg; added metoprolol Obesity [id number] E66.9 advised low fat, low cholestero l diet, regular exercise and weight reduction. pt was on phentermin e from cardio-off right now while they adjust her bp Multiple joint pain 3567 8005 M25.50 bilateral hands, knees, ankles and hx of scoliosis as well, dwp prn use muscle relaxerpt has family with AI issuessees ortho for injections Depressive disorder 3548 9007 F32.9 declines referral for mood at this time, bee mcgrath, advised to call if changes Scoliosis deformity of spine 030688371 M41.9 used to see ortho in [place], would like to see if ortho can address this as well, has not been checked in many years Vitamin D deficiency 347 41506 E55.9 low , cont high dose weekly replacemen t- change to qd [id number] Flavia Myers APN, SHAHRIAR LOVE (Adult Med) [address] [place] [address] 08/31/2023 14:35:36 09/01/2023 15:14:50 Multiple joint pain 07174044 M25.50 bilateral hands, knees, ankles and hx of scoliosis as well, dwp prn use muscle relaxerpt has family with AI issuessees ortho for injections Essential hypertension 17111633 I10 cardio changed medsno cp or soballergy to amlodipine cont hctz 25 mg, losartan 100 mg; added metoprolol but pt did not cont, resume med, also advised to see cardiology for her follow up Obesity 837304106 E66.9 advised low fat, low cholestero l diet, regular exercise and weight reduction. pt was on phentermin e from cardio-off right now while they adjust her bp Depressive disorder 3548 9007 F32.9 declines referral for mood at this time, bee mcgrath, advised to call if changes Scoliosis deformity of spine 911215032 M41.9 used to see ortho in [place], would like to see if ortho can address this as well, has not been checked in many years Vitamin D deficiency 347 04340 E55.9 low , cont high dose weekly replacemen t- change to qd Edema of l ower extremity 077952346 R60.0 take additional hctz prn edema Screening for malignant neoplasm of colon 814097191 Z12.11 Screening mammography 24 295515 Z12.31 Prediabetes 083524723 R7 3.03 a1c 5.9dwp diet changes, cont metforminn eed lab [id number] Flavia Myers APN, ADMITTING CLERK-C [facility] (Adult Med) [address] [place] [address] 01/26/2024 14:31:25 01/28/2024 17:14:25 Essential hypertension 37500415 I10 sees cardiono cp or soballergy to amlodipine cont hctz 25 mg, losartan 100 mg; added metoprolol but pt did not cont, resume med,advise d to see cardiology for her follow up Multiple joint pain 3567 8005 M25.50 bilateral hands, knees, ankles and hx of scoliosis as well, dwp prn use muscle relaxerpt has family with [facility] issuessees ortho for injections Obesity 079382567 E66.9 advised low fat, low cholestero l diet, regular exercise and weight reduction. pt was on phentermin e from cardio-off right now while they adjust her bp Depressive disorder 3548 9007 F32.9 declines referral for mood at this time, dwp risks, advised to call if changes Scoliosis deformity of spine 777672921 M41.9 used to see ortho in [place], Vitamin D deficiency 347 48061 E55.9 low , cont high dose weekly replacemen t- change to qd Edema of l ower extremity 265594129 R60.0 take additional hctz prn edema Prediabetes 422358568 R7 3.03 a1c 5.9dwp diet changes, cont metformin Tear of ta lofibular ligament 274628913 S93.491A ankle swelling [id number] US shows possible tear to right ATFL, will refer to podiatry, Health Concerns Section Related Observation LastModified by Organization Detai ls LastModified Time None Recorded Concern Status LastModified by Organization Details LastModified Time None Recorded Advance Directives Directive Y: Payers Encounter Date Sequence Insurance Name Policy Number Policy Monterroso Covered Member ID Monterroso Member ID Guarantor Name 01/28/2023 1 [facility] ON OR AFTER 08/16/20 (MEDICAID REPLACEMENT - HMO) [place] [id number] [place] 02/24/2023 1 [facility] ON OR AFTER 08/16/20 (MEDICAID REPLACEMENT - HMO) [place] [id number] [place] 04/06/2023 1 [facility] ON OR AFTER 08/16/20 (MEDICAID REPLACEMENT - HMO) [place] [id number] [place] 08/31/2023 1 [facility] ON OR AFTER 08/16/20 (MEDICAID REPLACEMENT - HMO) [place] [id number] [place] 01/26/2024 1 [facility] ON OR AFTER 08/16/20 (MEDICAID REPLACEMENT - HMO) [place] [id number] [place] Notes Date Note Type Note Provider Name and Address Organization Details Recorded Time 01/28/2023 text/html sx started 4 day s ago. on and off chronic ear pain. Had double ear infection a month ago. Went to [facility] and was given 2 rounds of abx and a steriod and did not helpwants ibuprofen refill- used to be on 800mg. Flavia Myers APN, FNP-Shiraz Attn: [address] [place], [address], [facility] 01/28/2023 22:09:50 02/24/2023 text/html Pt complaining o f recurrent ear infections. She has pain but usually no blockage. She has been told she has fluid in her ears. Kobe Morales MD Attn: [address] [place], [address], [place] [facility] 02/24/2023 16:08:42 04/06/2023 text/html htn- denies cp o r soblow back pain from scoliosis Flavia Myers APN, FNP-Shiraz Attn: [address] [place], [address], [place] [facility] 04/06/2023 16:36:54 08/31/2023 text/html htn- denies cp o r soblow back pain from scoliosis Flavia Myers APN, FNP-Shiraz Attn: [address] [place], [address], [place] [facility] 08/31/2023 15:31:55 01/26/2024 text/html htn- denies cp o r soblow back pain from scoliosis pt c/o rash on both arms noticed in the last day or 2 , kind of red bump that itch and are not warm to touch, started after she wore long sleeves Flavia Myers APN, ADMITTING CLERK-C Attn: [address] [place], [address], [place] [facility] 01/26/2024 17:59:58 OBGyn Episode No OBEpisode recorded.
--- OUTSIDE RECORDS SUMMARY | 2024-06-10 23:54 | XMS_ITS | Clinical Summary ---
Author Organization [facility] Building [address] Address [address] [place] [address] Care Team Providers Care Transfer Machine Operator Name Role Phone Flavia Gibson NP Primary Care Provider Allergies Active Allergy Reactions Criticality Noted Date [...] Active Active Problems No known active problems Encounters Date Type Department Care Team Description 03/21/2024 10:00 AM HEAVY DUTY PRESS OPERATOR Office Visit [facility] Orthopedic and Sports Medicine [address] [place] [address] [facility] Primary osteoarthritis of both knees (Primary Dx) from Last 3 Months Surgical History Surgery Date Site/Laterality Comments CHOLECYSTECTOMY TUBAL LIGATION ABLATION Medical History Medical History Date Comments Seizures (HCC) Hypertension Social History Tobacco Use Types Packs/Day Years [...] you are drinking? Patient does not drink Q3: How often do you have si x or more drinks on one occasion? Never 03/21/2024 Comments Unknown Sex and Gender Information Value Date Recorded Sex Assigned at Not on file Legal Sex Female 1:34 PM CDT Gender Identity Not on file Sexual Orientation Not on file Obstetrics History Last Filed Vital Signs Vital Sign Reading Time Taken Comments Blood Pressure 140/76 03/21/2024 10:16 AM HEAVY DUTY PRESS OPERATOR Pulse 76 03/21/2024 10:16 AM HEAVY DUTY PRESS OPERATOR Temperature 36.4 C (97.6 F) 01/10/2020 9:39 AM HEAVY DUTY PRESS OPERATOR Respiratory Rate - - Oxygen Saturation - - Inhaled Oxygen Concentration - - Weight 110.7 kg (244 lb) 03/21/2024 10:16 AM HEAVY DUTY PRESS OPERATOR Height 144.8 cm (4' 9 ) 03/21/2024 10:16 AM HEAVY DUTY PRESS OPERATOR Body Mass Index 52.8 03/21/2024 10:16 AM HEAVY DUTY PRESS OPERATOR Plan of Treatment Health Maintenance Due Date Last Done Comments Breast Cancer Screening-Mammogram 1977 Cervical Cancer Screening 1977 Colon Cancer Screening-Colonoscopy 1977 Depression Screening 1977 Hepatitis C Screening 1977 DTaP/Tdap/Td Vaccine (1 - Tdap) 1988 Hepatitis B Screening 04/18/1995 Regular Well Visit/Exam 18-64 04/18/1995 Influenza Vaccine (#1) 2023 Pneumococcal vaccine <65 Aged Out No longer eligible based on patient's age to complete this topic Procedures Procedure Name Priority Date/Time Associated Diagnosis Comments LA ARTHROCENTESIS ASPIR&/INJ MAJOR JT/BURSA W/O US Routine 03/21/2024 10:00 AM HEAVY DUTY PRESS OPERATOR Primary osteoarthritis of both knees from Last 3 Months Results * LA ARTHROCENTESIS ASPIR&/INJ MAJOR JT/BURSA W/O US (03/21/2024 10:00 AM HEAVY DUTY PRESS OPERATOR) Narrative Kan Vasquez PA - 03/21/2024 10:00 AM HEAVY DUTY PRESS OPERATOR Kan Vasquez PA 03/21/2024 10:33 AM Large [...] Final Result from Last 3 Months Insurance [facility] Care Teams Transfer Machine Operator Relationship Specialty Start Date End Date Paige, Flavia Cordero NP [address] [place] [address] PCP - General Nurse Practitioner 09/16/19
--- OUTSIDE RECORDS SUMMARY | 2024-06-10 23:54 | XMS_ITS | CONTINUITY OF CARE DOCUMENT ---
Author Name katherine bebesami Address Unknown Organization [facility] Address [address] [place] [address] Phone [phone] Care Team Providers Care Solderer Barrel Ribs Name Role Phone Daily Yun MD Unavailable Daily Yun MD Unavailable MYERS TEA TREE FARMER-C, HOSEA Unavailable PROBLEMS Condition Status Date Provider Notes HTN active Vaibhav Geronimot Leg edema, bilateral active Vaibhav Wright Morbid obesity active Vaibhav Wright Leg pain, bilateral b/l veno us insufficency on doppler 07/2020 active Daily Yun MD Sleep disorder active Daily Yun MD ENCOUNTERS Date Type Provider Location Encounter Diag nosis - In-person encounter Office Visit Daily Yun MD [facility] Sleep disorder - In-person encounter Office Visit Daily Yun MD [facility] - In-person encounter Office Visit Daily Yun MD [facility] - In-person encounter Office Visit Daily Yun MD [place] - In-person encounter Office Visit Daily Yun MD [place] - In-person encounter Office Visit Daily Yun MD [facility] Office Leg pain, bilateral b/l venous insufficency on doppler 07/2020 - In-person encounter Office Visit Daily Yun MD [place] HTNLeg edema, bilateralMorbid obesity VITAL SIGNS Date Observation Value Provider Body Mass Index (Ratio) 48.06 kg/m2 Tio Yun MD blood pressure, diastolic 90 mm[Hg] Ka yla Ruple blood pressure, systolic 160 mm[Hg] Carmencita la [facility] blood pressure, cuff size regular Elizabeth yla [facility] oxygen saturation, oximetry 95 % [facility] pulse rate 76 /min [facility] weight E&M 238 [lb_av] Beth [facility] height E&M 59 [in_i] [facility] Body Mass Index (Ratio) 49.07 kg/m2 Tio Yun MD blood pressure, cuff size large Ja rret blood pressure, diastolic 106 mm[Hg] Ja rret blood pressure, systolic 160 mm[Hg] Jar ret pulse rate 72 /min Jimmy y oxygen saturation, oximetry 97 % Jimmy respiratory rate E&M 12 /min Jimmy weight E&M 243 [lb_av] Jimmy er y height E&M 59 [in_i] Jimmy erda y Body Mass Index (Ratio) 48.67 kg/m2 Tio Yun MD pulse rate 79 /min Jimmy er y blood pressure, cuff size large Ja rret blood pressure, diastolic 104 mm[Hg] Ja rret blood pressure, systolic 158 mm[Hg] Jar ret respiratory rate E&M 12 /min Jimmy oxygen saturation, oximetry 96 % Jimmy weight E&M 241 [lb_av] Jimmy y height E&M 59 [in_i] Jimmy y Body Mass Index (Ratio) 48.06 kg/m2 Tio Yun MD blood pressure, cuff size large An rony Sandhu blood pressure, diastolic 121 mm[Hg] Brandi rony Sandhu blood pressure, systolic 190 mm[Hg] Any thuy Edson oxygen saturation, oximetry 98 % Hayley Edson respiratory rate E&M 19 /min Hayley Wi iatn pulse rate 68 /min Hayley Edson weight E&M 238 [lb_av] Hayleythuy Sandhu height E&M 59 [in_i] Hayleythuy Sandhu Body Mass Index (Ratio) 47.26 kg/m2 Tio Yun MD blood pressure, diastolic 109 mm[Hg] Elle nkLog blood pressure, systolic 173 mm[Hg] Ileana kLog respiratory rate E&M 20 /min Janet Duran blood pressure, cuff size regular Elke Duran blood pressure, diastolic 109 mm[Hg] Elke Duran blood pressure, systolic 173 mm[Hg] Lynette Duran oxygen saturation, oximetry 96 % Janet Duran pulse rate 80 /min Janet Duran weight E&M 234 [lb_av] Janet Duran height E&M 59 [in_i] Janet Duran Body Mass Index (Ratio) 50.49 kg/m2 Tio Yun MD blood pressure, cuff size large Robbie Montejo blood pressure, diastolic 80 mm[Hg] Robbie Montejo blood pressure, systolic 132 mm[Hg] Carmenza curry Gruenenfelder oxygen saturation, oximetry 95 % Cony Gruenenfelder respiratory rate E&M 16 /min Cony G ruenenfelder pulse rate 74 /min Cony Grlexynenfe lder weight E&M 250 [lb_av] Cony Grlexynenfe lder height E&M 59 [in_i] Cony Villarrealnenfe lder Body Mass Index (Ratio) 49.07 kg/m2 Tio Yun MD blood pressure, cuff size large Ke rri Gruenenfelder blood pressure, diastolic 106 mm[Hg] Ke rri Gruenenfelder blood pressure, systolic 162 mm[Hg] Carmenza Bryantuenenfelder oxygen saturation, oximetry 97 % Cony Villarrealnenfelder respiratory rate E&M 16 /min Cony zambranoenenfelder pulse rate 64 /min Cony Villarrealnenfe lder weight E&M 243 [lb_av] Cony Pererae lder height E&M 59 [in_i] Cony Hair [facility] ALLERGIES Allergy Name Onset Date Reaction Criticality Status AMOXICILLIN Low Criticality active HISTORY OF MEDICATION USE Medication Status Instructions Dates Provider Indications Com ments metoprolol succinate 100 mg tablet extended release 24 hr active Take 1 tablet by mouth once a day Andres Ahmedzai metoprolol succinate 50 mg tablet extended release 24 hr completed Take 1 tablet by mouth once a day 03/12 - Andres Ahmedzai metoprolol succinate 25 mg tablet extended release 24 hr completed Take 1 tablet by mouth once a day 02/24 - 03/12 Andres Ahmedzai phentermine 37.5 mg capsule active TAKE 1 CAPSULE BY MOUTH EVERY DAY 05/20 Daily Yun MD phentermine 37.5 mg tablet completed Take 1 tablet by mouth once a day - 05/20 Daily Yun MD phentermine 37.5 mg capsule completed TAKE 1 CAPSULE BY MOUTH EVERY DAY - 09/20 Daily Yun MD phentermine 37.5 mg capsule completed TAKE 1 CAPSULE BY MOUTH ONCE DAILY 10/09 - Daily Yun MD FeroSul 325 mg (65 mg iron) tablet active Take 1 tablet by mouth once a day 04/17 Cony Songer #30, 30 days supply, Prescribed by HOSEA MYERS, Filled 2020 albuterol sulfate 90 mcg/actuation HFA aerosol inhaler active Inhale 2 puff by mouth every four hours as needed 04/28 Cony Songer #8.5, 16 days supply, Prescribed by YANIRA COLMENARES, Filled 04/28/2020 levetiracetam 500 mg tablet active Take 1 by mouth twice a day 05/22 Cony Songer #120, 30 days supply, Prescribed by ALAN ZAZUETA, Filled 05/22/2020 hydrochlorothiazide 25 mg tablet active Take 1 tablet by mouth once a day as needed 11/03 Cony Songer #30, 30 days supply, Prescribed by HOSEA MYERS, Filled 06/17/2020 fluticasone propionate 50 mcg/actuation spray,suspension active Use 1 spray into both nostrils once a day 04/17 Cony Songer #16, 60 days supply, Prescribed by HOSEA MYERS, Filled 06/17/2020 losartan 100 mg tablet active Take 1 tablet by mouth once a day 06/18 Cony Songer #30, 30 days supply, Prescribed by HOSEA MYERS, Filled 06/18/2020 SOCIAL HISTORY Date Observation Value Provider smoking status Never smoker Andres Ariza smoking status Never smoker Andres Ariza social history reviewed E&M revi ewed - no changes required Andres Charlescharleszaquita social history E&M S moking History: Ellen garcia has never smoked. Andres Arseniozai smoking status Never smoker Hayley Edson social history reviewed E&M revi ewed - no changes required Daily Yun MD social history reviewed E&M revi ewed - no changes required Andres Cesarzaquita smoking status Never smoker Cony davila social history E&M S moking History: Ellen garcia has never smoked. Andres Ariza social history reviewed E&M revi ewed - no changes required Andres Ariza number of grandchildren Daily Wright social history E&M S moking History: Ellen garcia has never smoked. Vaibhav Wright social history reviewed E&M revi ewed - no changes required Vaibhav Wright smoking status Never smoker Cony davila INSURANCE PROVIDERS Payer name Policy type / Coverage type [facility] [place] MED[place] (2) Medicaid [id number] ADVANCE DIRECTIVES Name Date DISCUSSED - NO DECISION MADE TREATMENT PLAN Date Name Performer [id number],S, Andres Charlesmedza i [id number],S, Andres Melvinmedza i [id number],S, Andres Melvinmedza i [id number],S, Andres Melvinmedza i [id number],S, Andres Charlesmedza i [id number],S, Andres Charlesmedza i [id number],S, Andres Charlesmedza i [id number],S, Andres Melvinmedza i [id number],S, Andres Ahmedza i [id number],S, Andres Ahmedza i [id number],S, Andres Ahmedza i [id number],S, Andres Ahmedza i [id number],S, Andres Ahmedza i [id number],S, Andres Ahmedza i [id number],S, Andres Ahmedza i [id number],S, Andres Ahmedza i [id number],B, Andres Ahmedza i [id number],B, Andres Ahmedza i [id number],S, Andres Ahmedza i [id number],S, Adnres Ahmedza i [id number],B, Andres Ahmedza i [id number],B, Andres Ahmedza i [id number],B, Andres Ahmedza i [id number],S, Andres Ahmedza i [id number],S, Daily Yun MD [id number],S, Daily Yun MD [id number],S, Andres Ahmedza i [id number],S, Andres Ahmedza i [id number],S, Andres Ahmedza i [id number],S, Andres Ahmedza i Cardiology: O rders: C T, Coronary Calcium Score (CPT-76265) Andres medzai Cardiology: T he following medications were removed from the medication list: Metoprolol Succinate 50 Mg Tablet Extended Release 24 Hr (Metoprolol succinate) ..... Take 1 tablet by mouth once a day Her updated medication list for this problem includes: Metoprolol Succinate 100 Mg Tablet Extended Release 24 Hr (Metoprolol succinate) ..... Take 1 tablet by mouth once a day Hydrochlorothiazide 25 Mg Tablet (Hydrochlorothiazide) ..... Take 1 tablet by mouth once a day as needed Losartan 100 Mg Tablet (Losartan) ..... Take 1 tablet by mouth once a day Orders: Shiraz Morales, Coronary Calcium Score (CPT-15988) Andres charleszai Cardiology: O rders: Shiraz Morales, Coronary Calcium Score (CPT-99126) [facility] O rders: Shiraz Morales, Coronary Calcium Score (CPT-81818) [facility]: O rders: [facility] Study Home (CPT-63479) Andres Ahmedzai Telehealth Andres Ahmedzai Telehealth Andres Ahmedzai Telehealth Andrse Ahmedzai Telehealth Andres Charlesmedzai Telehealth Andres Charlesmedzai Telehealth: H er updated medication list for this problem includes: Metoprolol Succinate 25 Mg Tablet Extended Release 24 Hr (Metoprolol succinate) ..... Take 1 tablet by mouth once a day Hydrochlorothiazide 25 Mg Tablet (Hydrochlorothiazide) ..... Take 1 tablet by mouth once a day as needed Losartan 100 Mg Tablet (Losartan) ..... Take 1 tablet by mouth once a day Andres Ahmedzai Telehealth Andres Ahmedzai Telehealth Andres Ahmedzai Cardiology [facility] Ahmedzai Cardiology [facility] Ahmedzai Cardiology Andres Ahmedzai Cardiology Andres Ahmedzai Cardiology Andres Ahmedzai Cardiology Andres Ahmedzai Cardiology Andres Ahmedzai Cardiology Andres Ahmedzai Cardiology Andres Ahmedzai Cardiology Andres Ahmedzai Cardiology Andres Ahmedzai Cardiology Andres Ahmedzai Telehealth- tried calling pt lm to set f/u Andres Ahmedzai Telehealth- tried calling pt lm to set f/u Andres Ahmedzai Telehealth- tried calling pt lm to set f/u Andres Ahmedzai Telehealth- tried calling pt lm to set f/u Andres Ahmedzai Telehealth Andres Ahmedzai Telehealth Andres Ahmedzai Telehealth Andres Ahmedzai Telehealth Andres Ahmedzai Cardiology Andres Ahmedzai Cardiology Andres Ahmedzai Cardiology Andres Ahmedzai Cardiology Andres Ahmedzai Telehealth Andres Ahmedzai Telehealth Andres Ahmedzai Telehealth Andres Ahmedzai Telehealth Andres Ahmedzai Telehealth--needs 3 mo fu Daily Yun MD Telehealth--needs 3 mo fu Daily Yun MD Cardiology Andres Ahmedzai Cardiology Andres Ahmedzai Cardiology Andres Ahmedzai Cardiology Andres Ahmedzai Cardiology [facility] Date Name Sleep Study Home CT, Coronary Calcium Score CT, Coronary Calcium Score Complete Echo Venous Doppler Bilat carin LE - Reflux HISTORY OF PROCEDURES Procedure Date Procedure Name Provider Procedure Notes S tatus EKG Daily Yun MD completed EKG Daily Yun MD completed
--- OUTSIDE RECORDS SUMMARY | 2024-06-10 23:54 | XMS_ITS | Continuity of Care Document ---
Author Organization [facility] Address [address] [place] [address] [place] [address] Phone Care Team Providers Care Orderly Name Role Phone Jarred Cisneros MD Unavailable Unavailable Advance Directives Directive Yes / No Effective Date File Name No Information Encounters Encounter Description Practice Location Reason(s) For Visit Diagnoses Date Provider Providers Copied on Encounter [facility], [address] [place], [id number], [place] tel:[phone] [facility] No Information Blayne Stern. [address] [place], [id number], [place]. tel:[phone] Family History Family Member Type Diagnosis Age At Onset No Information Payers Payer name Insurance type Covered constitution party ID Authoriza tion(s) No Information Social History Type Description Quantity Date Captured Comments Sex Female Smoking Status No Information Chief Complaint And Reason For Visit No Information Plan Of Treatment Date Type Action Status No Information History Of Present Illness Encounter Date Complaint History Of Prese nt Illness No Information Instructions Date Instruction Additional Infor mation No Information Assessments Type Assessment Date No Information
--- OUTSIDE RECORDS SUMMARY | 2024-06-10 23:54 | XMS_ITS | Clinical Summary ---
Author Organization [facility] Address [address] [place] [address] Care Team Providers Care Heel Room Supervisor Name Role Phone Roger Pride AUTOMATIC THREAD WINDER-SAND FILLER Primary Care Provider Source Comments [facility],non-owned Affiliates and Associated Physician Practices is amultiple site organization consisting of ambulatory clinics and hospital sitesin [place], [place], [place] and [place]. This disclosure is being madepursuant to the Care Everywhere program and may not contain all information available regarding this patient. Last updated 17.[facility] Allergies Active Allergy Reactions Criticality Noted Date Comments Amlodipine Base Swelling High Amoxicillin Unknown 07/09/2020 Amoxicillin-Pot Clavulanate Rash Medium 05/11/19 16 Augmentin Rash Medium 05/11/2015 Medications * Be aware that medications may not be up to date on this document. Alwaysverify current medications with the patient. hydroCHLOROthia zide (HYDRODIURIL) 25 MG tablet TAKE 1 TABLET BY MOUTH EVERY DAY DIRECTED Active ibuprofen (MOTRIN) 800 MG tablet ibuprofen 800 mg tablet Active losartan (COZAAR) 100 MG tablet TAKE 1 TABLET BY MOUTH EVERY MORNING Active tiZANidine (ZANAFLEX) 4 MG tablet TK 1 T PO Q 8 HOURS PRN FOR SPASMS 0 8 Active Meloxicam 10 MG CAPS Take 10 mg by mouth once daily Active albuterol HFA (PROVENTIL; VENTOLIN; PROAIR) 108 (90 Base) MCG/ACT inhaler 1 Active vitamin D, ergocalciferol, (DRISDOL) 1.25 MG (63145 UT) capsule Take 1 (one) capsule by mouth every 7 days 1 Active fluticasone propionate (FLONASE) 50 MCG/ACT nasal spray SHAKE LIQUID AND USE 1 SPRAY IN EACH NOSTRIL EVERY DAY 2 Active losartan-hydroC HLOROthiazide (HYZAAR) 100-25 MG tablet Take 1 (one) tablet by mouth once daily 2 Active naproxen (NAPROSYN) 500 MG tablet Take 1 (one) tablet by mouth 2 times daily with morning and evening meal 1 Active phentermine (ADIPEX-P) 37.5 MG capsule Take 1 (one) capsule by mouth once daily 2 Active metFORMIN (Glucophage) 500 MG tablet Take 1 (one) tablet by mouth 2 times daily 3 Active phentermine (Adipex-P) 37.5 MG tablet Take 1 (one) tablet by mouth once daily 3 Active cyclobenzaprine (Flexeril) 10 MG tablet TAKE 1 TABLET BY MOUTH EVERY 8 TO 10 HOURS - DO NOT DRIVE OR OPERATE MACHINERY WHILE TAKING THIS MEDICATION 3 Active midazolam (Nayzilam) 5 MG/0.1ML nasal spray [place] 0.1 mL into the nose as needed for Seizures 1 Each 5 3 Active Pyridoxine HCl 100 MG Take 1 (one) tablet by mouth once daily 90 tablet 3 3 Active levETIRAcetam (Keppra) 750 MG tablet Take 1 (one) tablet by mouth 2 times daily 180 tablet 3 4 Active Active Problems Problem Noted Date Diagnosed Date Knee pain 01/19/2020 Current tear of medial cartilage or meniscus of knee 01/19/2020 Essential hypertension 01/19/2020 Hand eczema 01/19/2020 Obesity 01/19/2020 Tinea corporis 01/19/2020 Tear of medial meniscus of knee 11/29/2017 Arthropathy of right ankle 11/24/2017 Headache 11/03/2017 Chiari malformation type I 09/30/2017 Iron deficiency 08/04/2017 Vitamin D deficiency 06/18/2017 Seizure 04/13/2017 Snoring 04/13/2017 Osteoarthritis of knee 01/01/2017 Ankle pain 12/12/2016 Neuropathy Carpal tunnel syndrome of left wrist Social History Tobacco Use Types Packs/Day Years Used Date Smoking Tobacco: Former Cigarettes Smokeless Tobacco: Never Tobacco Cessation:Counseling Given: Not Answered Alcohol Use Standard Drinks/Week Comments Yes 0 (1 standard drink = 0.6 oz pur e alcohol) Comments No Sex and Gender Information Value Date Recorded Sex Assigned at Not on file Legal Sex Female 5:35 AM TACK CLEANER Gender Identity Not on file Sexual Orientation Not on file Last Filed Vital Signs Vital Sign Reading Time Taken Comments Blood Pressure 171/105 04/01/2023 11:13 AM TACK CLEANER Pulse 68 04/01/2023 11:13 AM TACK CLEANER Temperature 36.7 C (98 F) 04/01/2023 11:13 AM TACK CLEANER Respiratory Rate 18 01/19/2020 8:50 AM TACK CLEANER Oxygen Saturation 97% 04/01/2023 11:13 AM TACK CLEANER Inhaled Oxygen Concentration - - Weight 112 kg (247 lb) 04/01/2023 11:13 AM TACK CLEANER Height 144.8 cm (4' 9 ) 12/23/2022 10:59 AM TACK CLEANER Body Mass Index 53.45 12/23/2022 10:59 AM TACK CLEANER Plan of Treatment Upcoming Encounters Date Type Department Care Team (Late st Contact Info) Description 12/07/2024 4:00 PM CDT Office Visit [facility] - Neurology [address] [place] [address] Ada Su, [facility] [address] [place] [address] Health Maintenance Due Date Last Done Comments COLOGUARD (AGES 45-75) - COL ON CA SCREENING 1975 COLON MONITORING 1975 COLONOSCOPY - COLON CA SCREENING 1977 CT COLONOGRAPHY - COLON CA SCREENING 1975 Colorectal Cancer Screening 1975 FIT - COLON CA SCREENING 1975 FLEX SIG - COLON CA SCREENING 1975 LIPID TESTING 1975 MAMMOGRAM 1975 PAP SMEAR 1975 HIV SCREENING 1992 HEPATITIS C SCREENING 04/13/1995 DTAP/TDAP/TD VACCINES (1 - Tdap) 1996 HEPATITIS B VACCINE (1 of 3 - 19+ 3-dose series) 1996 SCREENING FOR DIABETES 12/23/2022 COVID-19 VACCINE (1 - 2024-2 5 season) 2023 DEPRESSION SCREENING 02/17/2024 INFLUENZA VACCINE (Season Ended) 2024 ZOSTER VACCINE (1 of 2) 04/18/2027 HIB VACCINE Aged Out No longer eligi ble based on patient's age to complete this topic HPV VACCINE Aged Out No longer eligi ble based on patient's age to complete this topic MENINGOCOCCAL (Group B) VACC INE SHARED DECISION-MAKING Aged Out No longer eligibl e based on patient's age to complete this topic MENINGOCOCCAL GROUPS A/C/Y/W VACCINE Aged Out No longer eligible b ased on patient's age to complete this topic PNEUMOCOCCAL VACCINE Aged Out No long er eligible based on patient's age to complete this topic Insurance [facility] Care Teams Heel Room Supervisor Relationship Specialty Start Date End Date Roger Pride APRN-DEL PCP - General 10/22/17
[2024-06-11] VITALS (24 sets, daily range): BP systolic 143–228; BP diastolic 81–124; PULSE 56–88; RESP 15–22; TEMP 36.5–37; O2SAT 91–98; BMI 45.8
--- NOTE | 2024-06-11 | ECHO_ITS ---
Patient Info Name: Savannah Mills Age: 49 years : 1975 Gender: Female Ht: 59 in Wt: 250 lbs BSA: 2.25 m2 HR: 58 bpm BP: 148 / 89 mmHg Heart Rhythm: Sinus Arrhythmia Technical Quality: Fair Exam Date: 06/11/2024 8:12 AM Exam Location: Echo Lab Patient Status: Inpatient Admit Date: 06/11/2024 Staff Ordering Physician: Lashawn Durant DO Clinical Research Manager: Yana Rivera RDCS Attending Provider: Lashawn Durant DO Referring Physician: Carleen LENTZ; Exam Type: CA echo doppler color flow Study Info Indications - CHF, Hypertensive urgensy. Complete two-dimensional, color flow and Doppler transthoracic echocardiogram is performed. Summary 1. Complete two-dimensional, color flow and Doppler transthoracic echocardiogram is performed. 2. Left ventricular chamber dimension is mildly enlarged. 3. Left ventricular systolic function is normal, estimated at 65-70%. 4. There is mildly increased left ventricular wall thickness. 5. The left ventricular diastolic function is grade II diastolic dysfunction. 6. Left atrial chamber dimension is mildly enlarged. 7. There is mild mitral valve regurgitation. 8. There is mild tricuspid valve regurgitation. Left Ventricle Left ventricular chamber dimension is mildly enlarged. Left ventricular systolic function is normal, estimated at 65-70%. There is mildly increased left ventricular wall thickness. The left ventricular diastolic function is grade II diastolic dysfunction. Right Ventricle Right ventricular chamber dimension is normal. Right ventricular systolic function is normal. Left Atria Left atrial chamber dimension is mildly enlarged. Right Atria Right atrial chamber dimension is normal. Atrial Septum Intact interatrial septum visualized by color flow imaging. Aortic Valve The aortic valve is probable trileaflet. There is mild aortic valve sclerosis. There is no aortic valve stenosis. There is trace aortic valve regurgitation. Pulmonic Valve The pulmonic valve is normal. There is no pulmonic valve stenosis. There is trace pulmonic regurgitation. Mitral Valve The mitral valve has calcified annulus. There is no mitral valve stenosis. There is mild mitral valve regurgitation. Tricuspid Valve The tricuspid valve leaflets are normal. There is no significant tricuspid valve stenosis. There is mild tricuspid valve regurgitation. No pulmonary hypertension, estimated pulmonary arterial systolic pressure is 30 mmHg. Pericardium/Pleural The pericardium appears normal. There is no pericardial effusion. Inferior Vena Cava Normal inferior vena cava with >50% collapse upon inspiration consistent with normal right atrial pressure, 8 mmHg. Aorta The aortic root size at the sinus of Valsalva is normal. Left Ventricular Outflow Tract Name Value Normal LVOT 2D LVOT Diameter 2.0 cm LVOT Doppler LVOT Peak Gradient 10 mmHg LVOT Mean Gradient 4 mmHg LVOT VTI 30 cm LVOT VTI/AV VTI Ratio 0.7 LVOT Stroke Volume 92 ml LVOT CO 5.9 l/min LVOT CI 2.6 l/min/m2 Pulmonic Valve Name Value Normal RVOT Doppler RVOT Peak Gradient 2 mmHg PV Doppler PV Peak Gradient 4 mmHg Mitral Valve Name Value Normal MV Doppler MV Decel [place] 415 cm/s2 MV PHT 74 ms MV Area (PHT) 3.0 cm2 4.0-5.0 MV Diastolic Function MV E Peak Velocity 106 cm/s MV A Peak Velocity 73 cm/s MV E/A 1.4 MV Decel Time 255 ms MV Annular TDI MV E/e' (Septal) 19.4 <=8.0 MV E/e' (Lateral) 21.3 <=8.0 MV E/e' (Average) 20.4 Tricuspid Valve Name Value Normal TV Regurgitation Doppler TR Peak Velocity 236 cm/s TR Peak Gradient 22 mmHg Estimated PAP/RSVP RA Pressure 8 mmHg <=5 PA Systolic Pressure 30 mmHg <36 RV Systolic Pressure 30 mmHg <36 Aortic Valve Name Value Normal AV Doppler AV Peak Velocity 190 cm/s AV Peak Gradient 15 mmHg AV Mean Gradient 8 mmHg AV VTI 42 cm AV Area (Cont Eq VTI) 2.2 cm2 >=3.0 AV Area (Cont Eq Vadim) 2.5 cm2 AV Regurgitation 2D LVOT Area 3.0 cm2 Ventricles Name Value Normal LV Dimensions 2D/MM IVS Diastolic Thickness (2D) 1.0 cm 0.6-1.0 LVID Diastole (2D) 4.7 cm 3.8-5.2 LVIW Diastolic Thickness (2D) 1.1 cm 0.6-0.9 LVID Systole (2D) 3.1 cm 2.2-3.5 LVOT Diameter 2.0 cm LV Mass (2D Cubed) 180.91 g 67.00-162.00 LV Mass Index (2D Cubed) 80 g/m2 43-95 Relative Wall Thickness (2D) 0.48 LV Fractional Shortening/Ejection Fraction 2D/MM LV Fractional Shortening (2D) 34 % 27-45 LV EF (2D Teicholz) 62 % 54-74 LV Diastolic Volume (4C MOD) 154 ml LV EF (4C MOD) 75 % LV Diastolic Volume (2C MOD) 133 ml LV EF (2C MOD) 52 % LV Diastolic Volume (BP MOD) 135 ml 46-106 LV Diastolic Volume Index (BP MOD) 60 ml/m2 29-61 LV Systolic Volume (BP MOD) 48 ml 14-42 LV Systolic Volume Index (BP MOD) 21 ml/m2 8-24 LV EF (BP MOD) 65 % 54-74 LV Diastolic Length (4C) 8.9 cm LV Systolic Length (4C) 6.4 cm LV Stroke Volume (4C MOD) 115 ml Atria Name Value Normal LA Dimensions LA Volume (4C A-L) 49 ml LA Volume (BP A-L) 69 ml RA Dimensions RA Area (4C) 20.5 cm2 <=18.0 Report Signatures
--- OUTSIDE RECORDS SUMMARY | 2024-06-11 00:09 | XMS_ITS | CONTINUITY OF CARE DOCUMENT ---
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, [place] Unavailable PROBLEMS Condition Status Date Provider Notes HTN active Vaibhav Geronimot Leg edema, bilateral active Vaibhav Wright Morbid obesity active Vaibhav Wright Leg pain, bilateral b/l veno us insufficency on doppler 07/2020 active Daily Yun MD Sleep disorder active Daily Yun MD ENCOUNTERS Date Type Provider Location Encounter Diag nosis - In-person encounter Office Visit Daily Yun MD [facility] Sleep disorder - In-person encounter Office Visit Daily Yun MD [facility] - In-person encounter Office Visit Daily Yun MD [facility] - In-person encounter Office Visit Daily Yun MD [facility] - In-person encounter Office Visit Daily Yun MD [facility] - In-person encounter Office Visit Daily Yun MD [facility] Leg pain, bilateral b/l venous insufficency on doppler 07/2020 - In-person encounter Office Visit Daily Yun MD [facility] HTNLeg edema, bilateralMorbid obesity VITAL SIGNS Date Observation Value Provider Body Mass Index (Ratio) 48.06 kg/m2 Tio Yun MD blood pressure, diastolic 90 mm[Hg] Ka yla Ruple blood pressure, systolic 160 mm[Hg] Carmencita la [facility] blood pressure, cuff size regular Elizabeth yla [facility] oxygen saturation, oximetry 95 % [facility] pulse rate 76 /min [facility] weight E&M 238 [lb_av] [facility] height E&M 59 [in_i] Beth [facility] Body Mass Index (Ratio) 49.07 kg/m2 Tio [...] respiratory rate E&M 19 /min Hayley Wi iaid pulse rate 68 /min Hayley Edson weight E&M 238 [lb_av] Hayleythuy Sandhu height E&M 59 [in_i] Hayleythuy Sandhu Body Mass Index (Ratio) 47.26 kg/m2 Tio Yun MD blood pressure, diastolic 109 mm[Hg] Elle nkLog blood pressure, systolic 173 mm[Hg] Ileana kLog respiratory rate E&M 20 /min Janet Duran blood pressure, cuff size regular Elke Druan blood pressure, diastolic 109 mm[Hg] Elke Duran [...] lder height E&M 59 [in_i] Cony Hair [facility] [place] ALLERGIES Allergy Name Onset Date Reaction Criticality [...] Songer #[id number], 30 days supply, Prescribed by ALNA ZAZUETA, Filled 05/22/2020 hydrochlorothiazide 25 mg tablet [...] Payer name Policy type / Coverage type [facility] ID [place] MEDICAID (2) Medicaid [id number] ADVANCE DIRECTIVES Name Date DISCUSSED - NO DECISION MADE TREATMENT PLAN Date Name Performer [id number],S, Andres Charlesmedza i [id number],S, Andres Melvinmedza i [id number],S, Andres Melvinmedza i [id number],S, Andres Melvinmedza i [id number],S, Andres Charlesmedza i [id number],S, Andres Charlesmedza i [id number],S, Andres Charlesmedza i [id number],S, Andres Melvinmedza i [id number],S, Andres Ahmedza i [id number],S, Andres Ahmedza i [id number],S, Andres Ahmedza i [id number],S, Andres Ahmedza i [id number],S, Andres Ahmedza i [id number],S, Andres Ahmedza i [id number],S, Andres Ahmedza i [id number],S, Andres Ahmedza i [id number],B, Andres Ahmedza i [id number],B, Andres Ahmedza i [id number],S, Andres Ahmedza i [id number],S, Andres Ahmedza i [id number],B, Andres Ahmedza i [id number],B, Andres Ahmedza i [id number],B, Andres Ahmedza i [id number],S, Andres Ahmedza i [id number],S, Daily Yun MD [id number],S, Daily Yun MD [id number],S, Andres Ahmedza i [id number],S, Andres Ahmedza i [id number],S, Andres Ahmedza i [id number],S, Andres Ahmedza i Cardiology: O rders: C T, Coronary Calcium Score ([id number]) Andres medzai Cardiology: T he following medications [...] day Orders: Shiraz Morales, Coronary Calcium Score ([id number]) Andres charleszai Cardiology: O rders: Shiraz Morales, Coronary Calcium Score ([id number]) [facility]ders: Shiraz Morales, Coronary Calcium Score ([id number]) [facility]: O rders: [facility] Study Home ([id number]) Andres Ahmedzai Telehealth Andres Ahmedzai Telehealth Andres Ahmedzai Telehealth Andres Ahmedzai Telehealth Andres Charlesmedzai Telehealth Andres Charlesmedzai [...] Telehealth Andres Ahmedzai Telehealth Andres Ahmedzai Cardiology [facility] Ahmedzai Cardiology [facility] Ahmedzai Cardiology Andres Ahmedzai Cardiology Andres [...] Cardiology Andres Ahmedzai Cardiology Andres Ahmedzai Cardiology Adnres Ahmedzai Telehealth Andres Ahmedzai Telehealth Andres Ahmedzai [...]
--- OUTSIDE RECORDS SUMMARY | 2024-06-11 00:09 | XMS_ITS | Continuity of Care Document ---
Author Organization [facility] Address [address] [place] [address] [place] [address] Phone Care Team Providers Care Controls Design Engineer Name Role Phone Jarred Cisneros MD Unavailable Unavailable Advance Directives Directive Yes / No Effective Date File Name No Information Encounters Encounter Description Practice Location Reason(s) For Visit Diagnoses Date Provider Providers Copied on Encounter [facility], [address], [id number], [place] tel:[phone] [facility] No Information Blayne Stern. [address], [id number], [place]. tel:[phone] Family History Family Member Type Diagnosis Age At Onset No Information Payers Payer name Insurance type Covered democrat ID Authoriza tion(s) No Information Social History [...]
--- NOTE | 2024-06-11 00:12 | ECG_ITS ---
Test Date: 2024-06-11 00:19:29 Measurements Intervals [place] Rate: 75 P: 50 VT: 175 QRS: -39 QRSD: 98 T: 58 QT: 404 QTc: 454 Interpretive Statements SINUS RHYTHM LEFT AXIS DEVIATION POSSIBLE LEFT ATRIAL ENLARGEMENT POSSIBLE LEFT VENTRICULAR HYPERTROPHY CANNOT R/O SEPTAL INFARCT, AGE INDETERMINATE MINIMAL Q WAVES- HIGH LATERAL LEADS BASELINE ARTIFACT- I, II, III, AVR, AVL, AVF, V1-V3 ABNORMAL ECG No previous ECG available for comparison Electronically Signed On 06-11-2024 07:00:38 CDT by Víctor Alanis D.O.
[2024-06-11 01:23] LABS: Basophils Absolute Auto 0.1 K/mm3 (0.0-0.1); Basophils Percent Auto 0.4 % (0.2-1.2); Eosinophils Absolute Auto 0.3 K/mm3 (0-0.3); Eosinophils Percent Auto 2.4 % (0-4.4); Hematocrit 40.8 % (37.0-47.0); Hemoglobin 12.6 g/dL (12.0-15.0); Immature Granulocyte Absolute 0.05 K/mm3 (0.00-0.031); Immature Granulocyte Percent A 0.4 % (0-0.5); Lymphocytes Absolute Auto 2.24 K/mm3 (0.9-3.2); Lymphocytes Percent Auto 18.2 % (18.3-44.2); Mean Corpuscular HGB Conc 30.9 g/dl (32-36); Mean Corpuscular Hemoglobin 24.9 pg (26-34); Mean Corpuscular Volume 80.6 fl (80-100); Mean Platelet Volume 10.2 fl (7.4-10.4); Monocytes Absolute Auto 0.7 K/mm3 (0.1-0.6); Monocytes Percent Auto 5.5 % (2.6-8.5); Neutrophils Percent Auto 73.1 % (45.5-73.1); Platelet Count Result 299 k/mm3 (150-375); Red Blood Count 5.06 M/mm3 (4.2-5.4); Red Cell Distribution Width 16.7 % (11.5-14.5); White Blood Count 12.3 K/mm3 (4.5-10.0)
[2024-06-11 01:33] LABS: Alanine Aminotransferase 21 U/L (6-35); Albumin Level 4.4 g/dL (3.5-5.1); Alkaline Phosphatase 114 U/L (38-126); Anion Gap 10 mmol/L (4-12); Aspartate Amino Transferase 22 U/L (14-36); Bilirubin,Total 0.3 mg/dL (0.2-1.3); Blood Urea Nitrogen 16 mg/dL (7-17); Calcium 8.9 mg/dL (8.4-10.2); Carbon Dioxide 29 mmol/L (22-30); Chloride 99 mmol/L (98-107); Estimated Glomerular Filt Rate > 60; Glucose 105 mg/dL (65-110); Lipase 54 U/L (23-300); Potassium 3.3 mmol/L (3.4-5.0); Sodium 138 mmol/L (137-145)
[2024-06-11 01:34] LABS: INR 0.9
[2024-06-11] MEDS: HYDROmorphone HCL INJ (*CRX) 2 MG/ML VIAL 0.5 MG IV PUSH (01:38)
[2024-06-11] MEDS: METOPROLOL TARTRATE INJ 5 MG/5 ML VIAL IV PUSH (01:39)
[2024-06-11 01:45] LABS: Troponin I < 0.012 ng/mL (0.000-0.034)
--- NOTE | 2024-06-11 03:18 | ECG_ITS ---
Test Date: 2024-06-11 04:30:54 Measurements Intervals [place] Rate: 68 P: 42 ID: [id number] QRS: -50 QRSD: 94 T: 63 QT: 422 QTc: 449 Interpretive Statements SINUS RHYTHM POSSIBLE LEFT ATRIAL ENLARGEMENT LEFT ANTERIOR FASCICULAR BLOCK CANNOT R/O SEPTAL INFARCT, AGE INDETERMINATE BASELINE ARTIFACT- I, II, III, AVR, AVL, AVF ABNORMAL ECG Compared to ECG 06/11/2024 00:19:29 Left anterior fascicular block now present Electronically Signed On 06-11-2024 07:04:25 CDT by Víctor Alanis D.O.
--- NOTE | 2024-06-11 04:24 | ED_ITS ---
HPI - General Adult General Chief complaint: Chest Pain Stated complaint: sharp chest pain Time Seen by Provider: 06/11/24 00:00 History of Present Illness HPI narrative: This is a 49-year-old presenting to the ED with chief complaint of chest pain. This chest pain started yesterday while she was at work. The left-sided chest pain radiating from her chest into her back. Is moderate and constant. She says this started she became diaphoretic. She is associated with shortness of breath, lower extremity edema and orthopnea. She denies fevers chills productive cough, nausea vomiting diarrhea. She has no history of congestive heart failure. Related Data Home Medications ?Medication ?Instructions ?Recorded ?Confirmed ?Last Taken ?Type fluticasone propionate 50 intranasal 06/23/19 01/14/22 Unknown History mcg/actuation nasal spray,suspension hydrochlorothiazide 25 mg tablet 06/23/19 01/14/22 Unknown History losartan 100 mg tablet 06/23/19 01/14/22 Unknown History phentermine 37.5 mg capsule 37.5 mg PO DAILY 01/14/22 01/14/22 Unknown History Allergies Allergy/AdvReac Type Severity Reaction Status Date / Time amoxicillin Allergy Mild Itching Verified 01/14/22 14:21 PENDING SALE TO [facility] Past Medical History Medical History Screening mammogram, encounter for Gestational hypertension History of endometrial biopsy 07/01/19 Arthritis Abnormal Pap smear of cervix 03/07/2008(lgsil)- 04/10/2008 colpo- no BX or ECC done- 11/22/2008 colpo no BX or ECC done History of hypertension History of seizures Surgical History Surgical History History of endometrial ablation (09/15/19) hscope Esme endometrial ablation/tubal ligation--menometrorrhagia, dysmenorrhea, undesired fertility, unicornuate uterus History of dilation and curettage (07/21/19) hscope d&c/multiple polypectomy--menometrorrhagia, dysmenorrhea, endometrial polyps History of colposcopy with cervical biopsy 11/22/08 no bx done History of 09/28/06 primary c/s--gestational hypertension, narrow pelvic outlet History of cholecystectomy (~09/2012) Family History Family History Father Family history of gout Hypertension Family history of diabetes mellitus in first degree relative Cirrhosis Sibling Hypertension Patient's sister is in good health Cerebrovascular accident sister Social History Social History Smoking status: Never smoker Alcohol intake: never Substance use: never Substance use type: does not use Living arrangements: other Additional living arrangements comments: single Occupation/Education: occupation 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 Head: atraumatic. EYES: EOMI, NOSE: Atraumatic NECK: Trachea midline RESPIRATORY: No increased rate of breathing bibasilar crackles CARDIOVASCULAR: RRR, pitting edema of the feet and lower extremities ABDOMINAL: Non-distended nontender MUSCULOSKELETAl: No obvious deformities NEURO: Alert. Moving 4/4 extremities SKIN:: Warm, dry. Normal color PSYCHIATRIC: Normal affect Course Vital Signs Vital signs: Vital Signs Temperature 96.1 F L 06/10/24 23:52 Pulse Rate 85 06/10/24 23:52 Respiratory Rate 22 H 06/10/24 23:52 Blood Pressure 230/117 H 06/10/24 23:52 Pulse Oximetry 98 06/10/24 23:52 Oxygen Delivery Room Air 06/10/24 23:52 Temperature 96.1 F L 06/10/24 23:52 Pulse Rate 73 06/11/24 05:06 Respiratory Rate 19 06/11/24 05:06 Blood Pressure 228/115 H 06/11/24 05:06 Pulse Oximetry 97 06/11/24 05:06 Oxygen Delivery Room Air 06/11/24 02:46 Medical Decision Making MDM Narrative Medical decision making narrative: -Course: 49-year-old female presenting chest pain radiating to her back. Chest x-ray showed enlarged aortic knob. CTA ordered to further evaluate. CTA significant for cardiomegaly and pulmonary vascular congestion. This is a new finding previous imaging. Patient also has evidence of heart failure including lower extremity edema, dyspnea on exertion and orthopnea. Blood pressures were significantly elevated in the ED and she was given 5 of IV metoprolol with mild improvement. She is given 40 of Lasix and 10 mg of hydralazine. Blood pressure did still did not respond was elevated at 190/122. She is given 20 mg labetalol and 1 in of nitropaste. We placed the IMU for further management of her hypertensive crisis and possible new onset chf. -DDX includes but is not limited to: New onset congestive heart failure, aortic dissection, pneumonia, bronchitis -Co-morbidities complicating care: Hypertension Independent EKG interpretation: Rhythm [sinus], Rate [68], Bandera -[normal], NM -[normal], QRS [narrow], QTC [normal], T waves -[negative for concerning inversions], ST Segments - [Negative for concerning elevations] Final interpretations: [Normal Sinus Rhythm] Vital Signs Vital Signs: Vital Signs Temperature 96.1 F L 06/10/24 23:52 Pulse Rate 85 06/10/24 23:52 Respiratory Rate 22 H 06/10/24 23:52 Blood Pressure 230/117 H 06/10/24 23:52 Pulse Oximetry 98 06/10/24 23:52 Oxygen Delivery Room Air 06/10/24 23:52 Temperature 96.1 F L 06/10/24 23:52 Pulse Rate 73 06/11/24 05:06 Respiratory Rate 19 06/11/24 05:06 Blood Pressure 228/115 H 06/11/24 05:06 Pulse Oximetry 97 06/11/24 05:06 Oxygen Delivery Room Air 06/11/24 02:46 Lab Data 06/11/24 01:17 06/11/24 01:17 Labs: Lab Results 06/11/24 06/11/24 Range/Units 01:17 04:54 WBC 12.3 H (4.5-10.0) K/mm3 RBC 5.06 (4.2-5.4) M/mm3 Hgb 12.6 (12.0-15.0) g/dL Hct 40.8 (37.0-47.0) % MCV 80.6 (80-100) fl MCH 24.9 L (26-34) pg MCHC 30.9 L (32-36) g/dl RDW 16.7 H (11.5-14.5) % Plt Count 299 (150-375) k/mm3 MPV 10.2 (7.4-10.4) fl Immature Gran % (Auto) 0.4 (0-0.5) % Neut % (Auto) 73.1 (45.5-73.1) % Lymph % (Auto) 18.2 L (18.3-44.2) % [place] % (Auto) 5.5 (2.6-8.5) % Eos % (Auto) 2.4 (0-4.4) % Baso % (Auto) 0.4 (0.2-1.2) % Lymph # (Auto) 2.24 (0.9-3.2) K/mm3 [place] # (Auto) 0.7 H (0.1-0.6) K/mm3 Eos # (Auto) 0.3 (0-0.3) K/mm3 Baso # (Auto) 0.1 (0.0-0.1) K/mm3 Abs Immat Gran (auto) 0.05 H (0.00-0.031) K/mm3 Absolute Neuts (auto) 9.0 H (1.3-6.7) K/mm3 Absolute Nucleated RBC 0.000 (0.0-0.012) K/mm3 Nucleated RBC % 0.0 (0.0-0.2) % PT 13.0 (11.1-14.7) Seconds INR 0.9 APTT 27.0 (22.3-36.8) Seconds Sodium 138 (137-145) mmol/L Potassium 3.3 L (3.4-5.0) mmol/L Chloride 99 (98-107) mmol/L Carbon Dioxide 29 (22-30) mmol/L Anion Gap 10 (4-12) mmol/L BUN 16 (7-17) mg/dL Creatinine 0.63 L (0.7-1.0) mg/dL Estim Creat Clear Calc Not Reportable Estimated GFR > 60 (59 - ) Glucose 105 (65-110) mg/dL Calcium 8.9 (8.4-10.2) mg/dL Total Bilirubin 0.3 (0.2-1.3) mg/dL AST 22 (14-36) U/L ALT 21 (6-35) U/L Alkaline Phosphatase 114 (38-126) U/L Troponin I < 0.012 < 0.012 (0.000-0.034) ng/mL NT-Pro-B Natriuret Pep 502 H (19.9-100) pg/mL Total Protein 8.0 (6.3-8.2) g/dL Albumin 4.4 (3.5-5.1) g/dL Lipase 54 (23-300) U/L Discharge Plan Discharge Clinical Impression: Cardiomegaly, Hypertensive urgency Patient Disposition: Still a Patient Condition: Stable Patient Language: Israeli Prescriptions: No Action phentermine 37.5 mg capsule 37.5 mg PO DAILY Rx Instructions: must administer 30 minutes before or 1-2 hours after breakfast hydrochlorothiazide 25 mg tablet losartan 100 mg tablet fluticasone propionate 50 mcg/actuation spray,suspension INTRANASAL albuterol sulfate 90 mcg/actuation HFA aerosol inhaler 2 puff INHALATION QID PRN (Reason: shortness of breath or wheezing) Qty: 8.5 0RF Rx Instructions: Use with spacer Follow-up/Referrals: Gibson,Flavia Yan APN [Primary Care Provider] -
[2024-06-11 04:47] LABS: NT Pro B Type Natriuretic Pept 502 pg/mL (19.9-100)
[2024-06-11] MEDS: POTASSIUM CHLORIDE 20 MEQ PACKET (FOR LIQUID) 40 MEQ PO (04:55)
[2024-06-11] MEDS: FUROSEMIDE INJ 40 MG/4 ML VIAL IV PUSH (04:56)
[2024-06-11] MEDS: hydrALAZINE HCL 20 MG/ML VIAL 10 MG IV PUSH ×2 (05:00→08:45)
[2024-06-11 05:26] LABS: Troponin I < 0.012 ng/mL (0.000-0.034)
[2024-06-11] MEDS: LABETALOL HCL INJ 100 MG/20 ML VIAL 20 MG IV PUSH (05:56)
[2024-06-11] MEDS: NITROGLYCERIN OINTMENT 1 INCH DOSE TRANSDERM (06:00)
--- NOTE | 2024-06-11 06:20 | PC.NURSE ---
This patient, Savannah Mills, was admitted to IMU Room 209-01. Patient/family oriented to hospital policies and general routines including ID bracelet, bed and alarms, visiting hours, pain management, procedures, bathroom and other care routines, personal items, smoking policy, room service/diet, and visiting hours. Information on how to activate the Rapid Response Team has been discussed. Patient/Family are encouraged to report perceived risks to care and to ask questions if they do not understand what they are told or what they should do.
--- NOTE | 2024-06-11 07:45 | PM.IMHP ---
H&P: HPI History of Present Illness Date/Time: 06/11/24 07:45 Chief Complaint: Chest Pain Narrative: 49-year-old with past medical history of LISA, epilepsy for which she follows with neurologist Dr. Ruiz at [facility], presented to the ED with chief complaint of chest pain. 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 Her chest pain started yesterday while she was at work. The left-sided chest pain radiating from her chest into her back. Pain is moderate and constant, diaphoretic,shortness of breath, lower extremity edema and orthopnea. She denies fevers chills productive cough, nausea vomiting diarrhea. She has no history of congestive heart failure. Pertinent ED: WBC 12.3, HgB 12.6,HCT 40,8,PLT 299, Na 138, K 3.3, Cr 0.63, GFR >60 Troponin: <0.012 BNP: 502 CXR: Cardiomegaly (an interval change from prior) with mild pulmonary vascular congestion, without focal infiltrate. CTA Chest/Abd/Pelvis:1. Mosaic attenuation in the lungs most likely related to subsegmental air trapping related to small airway disease and/or pulmonary hypertension with enlargement of the central pulmonary arteries. 2. Cardiomegaly. 3. No acute intra-abdominal/pelvic process. EKG: Sinus Rhythm,possible left atrial enlargement,left anterior fascicular block,r/o septal infarct. During the evaluation patient reports of chest pain during inspiration. Patient reports that she took ibuprofen 800mg yesterday but did not help with the pain. Patient denies any viral illness during recent time. Patient is admitted in the setting of chest pain. Cardiology is consulted and appreciate recommendation. [facility] Past Medical History Medical History Screening mammogram, encounter for Gestational hypertension History of endometrial biopsy 07/01/19 Arthritis Abnormal Pap smear of cervix 03/07/2008(lgsil)- 04/10/2008 colpo- no BX or ECC done- 11/22/2008 colpo no BX or ECC done History of hypertension History of seizures Surgical History Surgical History History of endometrial ablation (09/15/19) hscope Esme endometrial ablation/tubal ligation--menometrorrhagia, dysmenorrhea, undesired fertility, unicornuate uterus History of dilation and curettage (07/21/19) hscope d&c/multiple polypectomy--menometrorrhagia, dysmenorrhea, endometrial polyps History of colposcopy with cervical biopsy 11/22/08 no bx done History of 09/28/06 primary c/s--gestational hypertension, narrow pelvic outlet History of cholecystectomy (~09/2012) Family History Family History Father Family history of gout Hypertension Family history of diabetes mellitus in first degree relative Cirrhosis Sibling Hypertension Patient's sister is in good health Cerebrovascular accident sister Social History Social History Smoking status: Former smoker Tobacco type: cigarettes Alcohol intake: former Drinks per week: 6 Substance use: former Substance use type: amphetamines Last use: 02/17/2016 Do You Feel Safe in your Home?: Yes Lack of Transportation: No Lack of Food: Never True Current Housing: I Have Housing Concerned About Future Housing: No Difficulty Paying Gas/Electric Bills: No Difficulty Paying for Meds: No Currently Unemployed: No Education: Decline to Answer Difficulty w/ Childcare or Family Care: No Living arrangements: other Additional living arrangements comments: single Occupation/Education: occupation Additional occupation/education comments: 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 at [employer] Gender identity (if verbalized by the patient): Female Sexual Orientation (if Verbalized by the Patient): Straight or Heterosexual Spiritual care concerns: Yes (holiness) Meds Home Medications and Allergies Home Medications ?Medication ?Instructions ?Recorded ?Confirmed ?Type fluticasone propionate 50 2 spray intranasal BID PRN nasal 06/23/19 06/11/24 History mcg/actuation nasal congestion spray,suspension hydrochlorothiazide 25 mg tablet 25 mg PO DAILY PRN swelling 06/23/19 06/11/24 History losartan 100 mg tablet 100 mg PO QAM 06/23/19 06/11/24 History albuterol sulfate 90 mcg/actuation 2 puff inhalation QID PRN 09/24/19 06/11/24 Rx aerosol inhaler shortness of breath or wheezing #8.5 grams ibuprofen 800 mg tablet 800 mg PO TID PRN pain 06/11/24 06/11/24 History levetiracetam 750 mg tablet 750 mg PO BID 06/11/24 06/11/24 History meloxicam 15 mg tablet 15 mg PO DAILY 06/11/24 06/11/24 History metformin 500 mg tablet 500 mg PO BID 06/11/24 06/11/24 History metoprolol succinate 100 mg 100 mg PO QAM 06/11/24 06/11/24 History tablet,extended release 24 hr Allergies Allergy/AdvReac Type Severity Reaction Status Date / Time amoxicillin Allergy Mild Itching Verified 06/11/24 06:35 Vital Signs Vital Signs - 24 hr 06/10/24 23:52 06/11/24 00:25 06/11/24 00:26 Temperature 96.1 F L Pulse Rate 85 75 72 Respiratory Rate 22 H 20 Blood Pressure 230/117 H 208/112 H Pulse Oximetry 98 96 Oxygen Delivery Room Air 06/11/24 01:39 06/11/24 01:43 06/11/24 02:40 Temperature Pulse Rate 73 70 56 L Respiratory Rate 18 16 Blood Pressure 226/124 H 173/101 H Pulse Oximetry 95 94 Oxygen Delivery 06/11/24 02:46 06/11/24 03:02 06/11/24 05:06 Temperature Pulse Rate 57 L 73 Respiratory Rate 15 19 Blood Pressure 175/90 H 228/115 H Pulse Oximetry 92 91 97 Oxygen Delivery Room Air 06/11/24 05:56 06/11/24 06:04 06/11/24 06:20 Temperature Pulse Rate 67 58 L Respiratory Rate 16 Blood Pressure 148/89 H Pulse Oximetry 93 Oxygen Delivery Room Air 06/11/24 06:20 06/11/24 06:25 Temperature 97.7 F Pulse Rate 65 58 L Respiratory Rate 18 16 Blood Pressure 170/93 H 148/89 H Pulse Oximetry 96 93 Oxygen Delivery Exam Narrative: APPEARANCE: No apparent distress. Head: atraumatic. EYES: EOMI, NOSE: Atraumatic NECK: Trachea midline RESPIRATORY: No increased rate of breathing bibasilar crackles CARDIOVASCULAR: RRR, pitting edema of the feet and lower extremities ABDOMINAL: Non-distended nontender MUSCULOSKELETAl: No obvious deformities NEURO: Alert. Moving 4/4 extremities SKIN:: Warm, dry. Normal color PSYCHIATRIC: Normal affect H&P: Results Labs Labs: Short CBC 06/11/24 Range/Units 01:17 WBC 12.3 H (4.5-10.0) K/mm3 Hgb 12.6 (12.0-15.0) g/dL Hct 40.8 (37.0-47.0) % Plt Count 299 (150-375) k/mm3 BMP 06/11/24 01:17 Sodium 138 Potassium 3.3 L Chloride 99 Carbon Dioxide 29 BUN 16 Creatinine 0.63 L Glucose 105 Calcium 8.9 Cardiac Enzymes 06/11/24 06/11/24 Range/Units 01:17 04:54 Troponin I < 0.012 < 0.012 (0.000-0.034) ng/mL Liver Function 06/11/24 Range/Units 01:17 Total Bilirubin 0.3 (0.2-1.3) mg/dL AST 22 (14-36) U/L ALT 21 (6-35) U/L Alkaline Phosphatase 114 (38-126) U/L Albumin 4.4 (3.5-5.1) g/dL Assessment and Plan Assessment and plan (1) Hypertensive urgency: Code(s): I16.0 - Hypertensive urgency Status: Acute Assessment and Plan: Hydralazine 10 mg IV q.4 p.r.n. Continue home medication losartan 100 mg and metoprolol succinate 100 mg p.o. q.d. Recommend weight reduction Recommended dash diet CT scan head: 1. Mild to moderate nonspecific white matter hypodensity which is disproportionate for age. This could be related to premature chronic small vessel ischemic disease given the reported history of hypertension. Differential would also include demyelinating disease such as multiple sclerosis or acute disseminated encephalomyelitis (ADEM), CADASIL (especially if age 20-40 with prominent anterior temporal lobe or external capsule involvement), drug abuse (especially with cerebellar involvement), vasculitis, or reactive astrocytosis (gliosis) secondary to nonspecific etiology. 2. Chiari I malformation. (2) Cardiomegaly: Code(s): I51.7 - Cardiomegaly Status: Acute Assessment and Plan: Echo: Left ventricle systolic function 65-70% (please see full report) (3) Chest pain: Code(s): R07.9 - Chest pain, unspecified Status: Acute Assessment and Plan: Troponin negative Pleuritic chest pain No resolution of pain after ibuprofen EKG reviewed Cardiology consulted Order lipid panel Reviewed echocardiogram which shows ejection fraction 65 to 70% Denies smoking, alcoholism and drug abuse Will start on statin after lipid panel Hospitalist MIPS Advance Care Plan I have confirmed that the patient's Advanced Care Plan is present, code status is documented, or surrogate decision maker is listed in patient medical record.: Yes Medication Reconciliation I have utilized all available resources to obtain, update and review the patients current medications (includes all prescriptions, OTC, herbals, cannabis, and nutritional supplements).: Yes
[2024-06-11 08:07] LABS: Troponin I < 0.012 ng/mL (0.000-0.034)
--- NOTE | 2024-06-11 11:03 | PC.NURSE ---
BP 201/115. Pt given Hydralazine IV push. BP now 143/84. Pt complaining of headache. Notified Dr. Mc. Ordered stat CT head
--- NOTE | 2024-06-11 11:23 | ECG_ITS ---
Test Date: 2024-06-11 11:47:49 Measurements Intervals [place] Rate: 71 P: 41 AL: 172 QRS: -48 QRSD: 96 T: 61 QT: 425 QTc: 463 Interpretive Statements SINUS RHYTHM POSSIBLE LEFT ATRIAL ENLARGEMENT LEFT ANTERIOR FASCICULAR BLOCK POSSIBLE LEFT VENTRICULAR HYPERTROPHY MINIMAL Q WAVES- HIGH LATERAL LEADS CANNOT R/O SEPTAL INFARCT, AGE INDETERMINATE ABNORMAL ECG Compared to ECG 06/11/2024 04:30:54 No significant changes Electronically Signed On 06-11-2024 13:01:51 CDT by Víctor Alanis D.O.
--- NOTE | 2024-06-11 11:25 | PC.NURSE ---
Pt having intermittent chest pain. Dr. Mc notified. Order for stat troponin and EKG
[2024-06-11 12:13] LABS: Cholesterol 188 mg/dL (0-200); HDL Direct 67 mg/dL; Triglycerides 89 mg/dL (<150)
[2024-06-11 12:23] LABS: Hemoglobin A1C 5.7 % (<5.7)
[2024-06-11 12:24] LABS: LDL Cholesterol Direct 79 mg/dL; Troponin I < 0.012 ng/mL (0.000-0.034)
[2024-06-11] MEDS: levETIRAcetam 250 MG TABLET 750 MG PO (20:58)
[2024-06-12] VITALS (10 sets, daily range): BP systolic 154–181; BP diastolic 91–99; PULSE 62–88; RESP 12–22; TEMP 36.7–36.9; O2SAT 95–100
[2024-06-12] MEDS: hydrALAZINE HCL 20 MG/ML VIAL 10 MG IV PUSH (04:53)
[2024-06-12 08:24] LABS: Hemoglobin 12.8 g/dL (12.0-15.0); Mean Corpuscular HGB Conc 31.2 g/dl (32-36); Mean Corpuscular Volume 80.2 fl (80-100); Mean Platelet Volume 10.6 fl (7.4-10.4); Platelet Count Result 318 k/mm3 (150-375); Red Blood Count 5.11 M/mm3 (4.2-5.4); Red Cell Distribution Width 16.8 % (11.5-14.5); White Blood Count 12.6 K/mm3 (4.5-10.0)
[2024-06-12 08:46] LABS: Alanine Aminotransferase 20 U/L (6-35); Albumin Level 4.2 g/dL (3.5-5.1); Alkaline Phosphatase 107 U/L (38-126); Anion Gap 5 mmol/L (4-12); Aspartate Amino Transferase 22 U/L (14-36); Bilirubin,Total 0.6 mg/dL (0.2-1.3); Blood Urea Nitrogen 9 mg/dL (7-17); Calcium 8.9 mg/dL (8.4-10.2); Carbon Dioxide 29 mmol/L (22-30); Chloride 101 mmol/L (98-107); Estimated Glomerular Filt Rate > 60; Glucose 133 mg/dL (65-110); Potassium 3.5 mmol/L (3.4-5.0); Sodium 135 mmol/L (137-145)
[2024-06-12] MEDS: METOPROLOL SUCCINATE EXT REL 100 MG TABCR PO (09:01)
[2024-06-12] MEDS: MELOXICAM 7.5 MG TABLET 15 MG PO (09:01)
[2024-06-12] MEDS: levETIRAcetam 250 MG TABLET 750 MG PO (09:01)
[2024-06-12] MEDS: LOSARTAN POTASSIUM 100 MG TABLET PO (09:01)
--- NOTE | 2024-06-12 10:45 | PM.IMPN ---
Progress Note: A&P Assessment and Plan (1) Hypertensive urgency: Code(s): I16.0 - Hypertensive urgency Status: Acute Assessment and Plan: Hydralazine 10 mg IV q.4 p.r.n. Continue home medication losartan 100 mg and metoprolol succinate 100 mg p.o. q.d. Recommend weight reduction Recommended dash diet CT scan head: 1. Mild to moderate nonspecific white matter hypodensity which is disproportionate for age. This could be related to premature chronic small vessel ischemic disease given the reported history of hypertension. Differential would also include demyelinating disease such as multiple sclerosis or acute disseminated encephalomyelitis (ADEM), CADASIL (especially if age 20-40 with prominent anterior temporal lobe or external capsule involvement), drug abuse (especially with cerebellar involvement), vasculitis, or reactive astrocytosis (gliosis) secondary to nonspecific etiology. 2. Chiari I malformation. (2) Cardiomegaly: Code(s): I51.7 - Cardiomegaly Status: Acute Assessment and Plan: Echo: Left ventricle systolic function 65-70% (please see full report) (3) Chest pain: Code(s): R07.9 - Chest pain, unspecified Status: Acute Assessment and Plan: Troponin negative Pleuritic chest pain No resolution of pain after ibuprofen EKG reviewed Cardiology consulted Order lipid panel Reviewed echocardiogram which shows ejection fraction 65 to 70% Denies smoking, alcoholism and drug abuse Will start on statin after lipid panel Subjective Date/time seen: 06/12/24 10:45 Exam Narrative: APPEARANCE: No apparent distress. Head: atraumatic. EYES: EOMI, NOSE: Atraumatic NECK: Trachea midline RESPIRATORY: No increased rate of breathing bibasilar crackles CARDIOVASCULAR: RRR, pitting edema of the feet and lower extremities ABDOMINAL: Non-distended nontender MUSCULOSKELETAl: No obvious deformities NEURO: Alert. Moving 4/4 extremities SKIN:: Warm, dry. Normal color PSYCHIATRIC: Normal affect Objective Data Vital Signs Vital Signs: Vital Signs - 24 hr 06/11/24 11:04 06/11/24 12:00 06/11/24 12:00 Temperature Pulse Rate 80 Respiratory Rate Blood Pressure 143/81 H Pulse Oximetry Oxygen Delivery Room Air 06/11/24 12:21 06/11/24 14:00 06/11/24 16:00 Temperature 98.5 F Pulse Rate 69 77 Respiratory Rate 20 Blood Pressure 155/90 H Pulse Oximetry 94 Oxygen Delivery Room Air 06/11/24 16:00 06/11/24 16:02 06/11/24 18:00 Temperature 98.6 F Pulse Rate 81 72 81 Respiratory Rate 22 H Blood Pressure 174/98 H Pulse Oximetry 96 Oxygen Delivery 06/11/24 20:00 06/11/24 20:00 06/11/24 20:00 Temperature 98.1 F 98.1 F Pulse Rate 77 77 Respiratory Rate 18 18 Blood Pressure 180/84 H 180/84 H Pulse Oximetry 98 98 98 Oxygen Delivery Room Air 06/11/24 20:00 06/11/24 22:00 06/12/24 00:00 Temperature Pulse Rate 78 88 88 Respiratory Rate Blood Pressure Pulse Oximetry Oxygen Delivery 06/12/24 00:00 06/12/24 00:00 06/12/24 00:29 Temperature 98.1 F Pulse Rate 88 Respiratory Rate 22 H Blood Pressure 177/91 H Pulse Oximetry 98 98 Oxygen Delivery Room Air Autopap 06/12/24 02:00 06/12/24 04:00 06/12/24 04:00 Temperature 98.1 F Pulse Rate 75 72 Respiratory Rate 18 Blood Pressure 181/96 H Pulse Oximetry 100 100 Oxygen Delivery Room Air 06/12/24 04:00 06/12/24 06:00 06/12/24 08:00 Temperature 98.4 F Pulse Rate 76 73 76 Respiratory Rate 20 Blood Pressure 179/99 H Pulse Oximetry 95 Oxygen Delivery 06/12/24 08:00 06/12/24 09:01 06/12/24 10:00 Temperature Pulse Rate 83 77 74 Respiratory Rate Blood Pressure Pulse Oximetry Oxygen Delivery Intake/Output Intake/Output: Intake & Output 06/09/24 06/10/24 06/11/24 06/12/24 23:59 23:59 23:59 23:59 Intake Total 1220 120 Balance 1220 120 Meds/Results Medications: Active Medications Generic Name Dose Route Start Last Admin Trade Name Freq PRN Reason Stop Dose Admin Acetaminophen 650 mg 06/11/24 11:02 Acetaminophen 325 Mg Tablet PO Q4H PRN Mild Pain (1-3) or Fever Albuterol 2 puff 06/11/24 16:20 Albuterol Sulfate (*Sp) Aerosol 1 Puff INHALATION QIDRT PRN shortness of breath or wheezing Fluticasone Propionate 2 spray 06/11/24 16:20 Fluticasone Propionate 0.05% Na Spr 16 Gm Btl (*Bkc) NASAL BID PRN nasal congestion Hydralazine HCl 10 mg 06/11/24 06:03 06/12/24 04:53 Hydralazine Hcl 20 Mg/Ml Vial IV PUSH 10 mg Q4H PRN Administration SBP greater than 180 Hydrochlorothiazide 25 mg 06/11/24 16:20 Hydrochlorothiazide 25 Mg Tablet PO DAILY PRN swelling Ibuprofen 800 mg 06/11/24 16:29 Ibuprofen 400 Mg Tablet PO TID PRN Pain Rated 4-6 Levetiracetam 750 mg 06/11/24 21:00 06/12/24 09:01 Levetiracetam 250 Mg Tablet PO 750 mg Q12HR CRISTO Administration Losartan Potassium 100 mg 06/12/24 09:00 06/12/24 09:01 Losartan Potassium 100 Mg Tablet PO 100 mg QAM CRISTO Administration Meloxicam 15 mg 06/12/24 09:00 06/12/24 09:01 Meloxicam 7.5 Mg Tablet PO 15 mg DAILY CRISTO Administration Metoprolol Succinate 100 mg 06/12/24 09:00 06/12/24 09:01 Metoprolol Succinate Ext Rel 100 Mg Tabcr PO 100 mg QAM CRISTO Administration Perflutren Lipid Microsphere 0 ml 06/11/24 06:03 Perflutren Lipid Microspheres 1.5 Ml Vial Diluted To 10 Ml Total Volume IV PUSH 06/14/24 06:04 ONCE PRN adequate visualization Protocol Radiology Results: ITS Impressions Chest X-Ray 06/11/24 01:55 IMPRESSION: Cardiomegaly (an interval change from prior) with mild pulmonary vascular congestion, without focal infiltrate. Chest/Abdomen/Pelvis CTA 06/11/24 07:59 IMPRESSION: 1. Mosaic attenuation in the lungs most likely related to subsegmental air trapping related to small airway disease and/or pulmonary hypertension with enlargement of the central pulmonary arteries. 2. Cardiomegaly. 3. No acute intra-abdominal/pelvic process. Head CT 06/11/24 11:40 IMPRESSION: 1. Mild to moderate nonspecific white matter hypodensity which is disproportionate for age. This could be related to premature chronic small vessel ischemic disease given the reported history of hypertension. Differential would also include demyelinating disease such as multiple sclerosis or acute disseminated encephalomyelitis (ADEM), CADASIL (especially if age 20-40 with prominent anterior temporal lobe or external capsule involvement), drug abuse (especially with cerebellar involvement), vasculitis, or reactive astrocytosis (gliosis) secondary to nonspecific etiology. 2. Chiari I malformation. Labs Labs: Laboratory Results - last 24 hr 06/11/24 06/11/24 06/12/24 11:51 11:52 08:10 WBC 12.6 H RBC 5.11 Hgb 12.8 Hct 41.0 MCV 80.2 MCH 25.0 L MCHC 31.2 L RDW 16.8 H Plt Count 318 MPV 10.6 H Sodium 135 L Potassium 3.5 Chloride 101 Carbon Dioxide 29 Anion Gap 5 BUN 9 D Creatinine 0.46 L Estim Creat Clear Calc Not Reportable Estimated GFR > 60 Glucose 133 H Hemoglobin A1c 5.7 Calcium 8.9 Total Bilirubin 0.6 AST 22 ALT 20 Alkaline Phosphatase 107 Troponin I < 0.012 Total Protein 8.0 Albumin 4.2 Triglycerides 89 Cholesterol 188 LDL Cholesterol Direct 79 HDL Direct 67
[2024-06-12] MEDS: hydroCHLOROthiazide 25 MG TABLET PO (12:02)
--- NOTE | 2024-06-12 13:30 | PM.DS ---
DS: Admitting Diagnosis Discharge Date 06/12/2024 Admitting Diagnosis Chest pain DS: Discharge Diagnosis Discharge Diagnosis (1) Hypertensive urgency: Code(s): I16.0 - Hypertensive urgency Status: Acute Assessment and Plan: Hydralazine 10 mg IV q.4 p.r.n. Continue home medication losartan 100 mg and metoprolol succinate 100 mg p.o. q.d. Recommend weight reduction Recommended dash diet CT scan head: 1. Mild to moderate nonspecific white matter hypodensity which is disproportionate for age. This could be related to premature chronic small vessel ischemic disease given the reported history of hypertension. Differential would also include demyelinating disease such as multiple sclerosis or acute disseminated encephalomyelitis (ADEM), CADASIL (especially if age 20-40 with prominent anterior temporal lobe or external capsule involvement), drug abuse (especially with cerebellar involvement), vasculitis, or reactive astrocytosis (gliosis) secondary to nonspecific etiology. 2. Chiari I malformation. (2) Cardiomegaly: Code(s): I51.7 - Cardiomegaly Status: Acute Assessment and Plan: Echo: Left ventricle systolic function 65-70% (please see full report) (3) Chest pain: Code(s): R07.9 - Chest pain, unspecified Status: Acute Assessment and Plan: Troponin negative Pleuritic chest pain No resolution of pain after ibuprofen EKG reviewed Cardiology consulted Order lipid panel Reviewed echocardiogram which shows ejection fraction 65 to 70% Denies smoking, alcoholism and drug abuse Will start on statin after lipid panel DS: Summary Hospital Course Hospital Course: 49-year-old with past medical history of LISA, epilepsy for which she follows with neurologist Dr. Ruiz at [facility], presented to the ED with chief complaint of chest pain. 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 The left-sided chest pain radiating from her chest into her back. Pain is moderate and constant, diaphoretic,shortness of breath, lower extremity edema and orthopnea. She denies fevers chills productive cough, nausea vomiting diarrhea. She has no history of congestive heart failure. Pertinent ED: WBC 12.3, HgB 12.6,HCT 40,8,PLT 299, Na 138, K 3.3, Cr 0.63, GFR >60 Troponin: <0.012 BNP: 502 CXR: Cardiomegaly (an interval change from prior) with mild pulmonary vascular congestion, without focal infiltrate. CTA Chest/Abd/Pelvis:1. Mosaic attenuation in the lungs most likely related to subsegmental air trapping related to small airway disease and/or pulmonary hypertension with enlargement of the central pulmonary arteries. 2. Cardiomegaly. 3. No acute intra-abdominal/pelvic process. EKG: Sinus Rhythm,possible left atrial enlargement,left anterior fascicular block,r/o septal infarct. During the evaluation patient reports of chest pain during inspiration. Patient reports that she took ibuprofen 800mg yesterday but did not help with the pain. Patient denies any viral illness during recent time. Patient is admitted in the setting of chest pain. Reviewed hbA1C and lipid panel both which were normal. Cardiology is consulted and advised to do nuclear stess as OP. Status at Discharge Cognitive/behavioral status at discharge: Stable Time Spent with Patient Time attestation: Total time spent providing and/or coordinating discharge services:45 minutes Exam Narrative: APPEARANCE: No apparent distress. Head: atraumatic. EYES: EOMI, NOSE: Atraumatic NECK: Trachea midline RESPIRATORY: No increased rate of breathing bibasilar crackles CARDIOVASCULAR: RRR, pitting edema of the feet and lower extremities ABDOMINAL: Non-distended nontender MUSCULOSKELETAl: No obvious deformities NEURO: Alert. Moving 4/4 extremities SKIN:: Warm, dry. Normal color PSYCHIATRIC: Normal affect DS: Data Data Completed and Pending Labs on day of discharge: Labs from last 24 hours 06/12/24 08:10 WBC 12.6 H RBC 5.11 Hgb 12.8 Hct 41.0 MCV 80.2 MCH 25.0 L MCHC 31.2 L RDW 16.8 H Plt Count 318 MPV 10.6 H Sodium 135 L Potassium 3.5 Chloride 101 Carbon Dioxide 29 Anion Gap 5 BUN 9 D Creatinine 0.46 L Estim Creat Clear Calc Not Reportable Estimated GFR > 60 Glucose 133 H Calcium 8.9 Total Bilirubin 0.6 AST 22 ALT 20 Alkaline Phosphatase 107 Total Protein 8.0 Albumin 4.2 Discharge Plan Discharge Attending physician on discharge: Manuel Mc Consulting providers: Lashay Garcia Discharging Clinician: Manuel Mc Anticipated Discharge Date/Time: 06/12/24 13:27 Patient Disposition: Home Activity: as tolerated Diet: heart healthy Discharge Instructions: Please follow up with Cardiology for nuclear stress test Check blood pressure 1 to 2 times a day. Record and bring into your doctor for review. Call your doctor if your blood pressure is greater than 180/110 or less than 90/45. Walk with cane or other assist device. Take precautions to avoid falls. Rise slowly from a lying or sitting position. Pause before standing or walking. Contact your doctor or call 911 and come to the Emergency Room if you have any type of trauma, lightheadedness with standing or other worrisome symptoms. Avoid NSAIDs (ibuprofen, naproxen, Aleve). Tylenol is safe to take. Follow-up with your primary care provider in 1-2 weeks. Please call for appointment. Follow-up with Cardiology in 2-4 weeks. Please call for an appointment. Thank you for using [facility] for your health care needs. Patient Instructions: Antibiotic Form, Heart Healthy Diet (DC), Hypertensive Crisis (DC) Patient Language: Bengali Stand Alone Forms: General Discharge Information Follow-up/Referrals: Paige,Flavia Yan APN [Primary Care Provider] - Lashay Garcia MD [Physician] - (OP Nuclear stress test) Discharge Medications: Continued hydrochlorothiazide 25 mg tablet 25 mg PO DAILY PRN (Reason: swelling) losartan 100 mg tablet 100 mg PO QAM fluticasone propionate 50 mcg/actuation spray,suspension 2 spray INTRANASAL BID PRN (Reason: nasal congestion) albuterol sulfate 90 mcg/actuation HFA aerosol inhaler 2 puff INHALATION QID PRN (Reason: shortness of breath or wheezing) Qty: 8.5 0RF Rx Instructions: Use with spacer metoprolol succinate 100 mg tablet extended release 24 hr 100 mg PO QAM metformin 500 mg tablet 500 mg PO BID meloxicam 15 mg tablet 15 mg PO DAILY levetiracetam 750 mg tablet 750 mg PO BID ibuprofen 800 mg tablet 800 mg PO TID PRN (Reason: pain) Date of admission: 06/11/24 05:33 Primary Care Provider: PaigeFlavia Admitting Provider: Lashawn Durant Attending physician on admission: Lashawn Durant Condition: Stable
== END 2024-06-12 13:48 | disposition home or self-care (01) ==
LOC: ANHED 06-11 04:38 → ANHIMU 06-12 13:05
PROVIDERS: Admitting Provider Internal Medicine; Emergency Provider Emergency Medicine; PCP Nurse Practitioner Family; Visit Provider General Practice
DX: I16.0 Hypertensive urgency (principal); I10 Essential (primary) hypertension; I51.7 Cardiomegaly; R07.81 Pleurodynia; G47.33 Obstructive sleep apnea (adult) (pediatric); G40.909 Epilepsy, unspecified, not intractable, without status epilepticus; Z87.891 Personal history of nicotine dependence; Z79.51 Long term (current) use of inhaled steroids; Z79.84 Long term (current) use of oral hypoglycemic drugs; Z79.899 Other long term (current) drug therapy
CPT/HCPCS: 36415; 70450; 71045; 71275; 74174; 80053; 80061; 83036; 83690; 83880; 84484; 85025; 85027; 85610; 85730; 93005; 93306; 96374; 96375; 96376; 99285; A9270; G0378; G0379; J0360; J1171; J1938; Q9967